=== PATIENT | male | born 1970 | race Caucasian/White ===

== ENCOUNTER 2016-10-03 21:03 | Emergency (ER) | payer OTHER ==
[~2016-10-03] VITALS: Ht 180.3 cm; Wt 67.2 kg
[~2016-10-03 21:03] MED LIST: LSN20 PO; NRV/5 PO; OMEP40CA PO
[2016-10-03 21:07] VITALS: TEMP 36.5; Ht 180.3 cm; Wt 67.2 kg
[2016-10-03] MEDS ORDERED: OMEP40CA41 PO (21:31)
--- NOTE | 2016-10-03 22:34 | DIAGNOSTIC IMAGING REPORT ---
RIGHT WRIST 5 VIEWS HISTORY: RIGHT WRIST/HAND PAIN Right COMPARISON: None. FINDINGS: No acute fracture or dislocation. Well-corticated ossific density dorsal to the carpal bones is consistent with an old triquetral bone fracture. Diffuse soft tissue swelling. No radiopaque foreign bodies. IMPRESSION: No acute fracture or dislocation. Diffuse soft tissue swelling. Electronically signed by: Smith Gloria M.D. 10/03/2016 10:32 PM Dictated Date/Time: 10/03/2016 10:30 PM
[2016-10-03] MEDS ORDERED: IBUPROFEN 800 MG TAB PO STA (22:40)
--- NOTE | 2016-10-03 22:48 | EMERGENCY ROOM VISIT NOTE ---
ED Visit Note First contact with patient: 21:17 Chief Complaint: Fell, Might Have Broke RIGHT Hand History of Present Illness: Patient is a 45-year-old male who presents to the emergency department today for evaluation of his RIGHT wrist pain/injury. The patient reports that he slipped on the ice while walking his dogs. He landed on his outstretched RIGHT hand. He denies striking his head or any loss of consciousness. He reports immediate pain and swelling to the affected area. He is tried nothing for his pain to this point. He rates his current discomfort as a 5/10. He denies any numbness or tingling into the distal extremity. He reports no previous history of fracture or injury to the affected area. Patient denies any associated neck pain, shoulder pain, elbow pain, or finger pain. Medications: Reviewed and discussed with the patient. Allergies: Phenergan PMH: No pertinent past medical history. SHx: Patient is a 45-year-old male who lives locally. ROS: All pertinent positive and negative review of systems are appropriately documented in the History of Present Illness. Physical Exam: VITAL SIGNS - Vital signs and nursing notes were reviewed. GENERAL - 45-year-old male appearing his stated age and in noticeable discomfort throughout the exam. MUSCULOSKELETAL - Active ROM of the RIGHT wrist was limited in all directions. Moderate edema noted to the Ulnar surface of the RIGHT wrist. No palpable deformities. Moderate tenderness over the Ulnar styloid process. No tenderness with squeezing the forearm. No tenderness extending into the carpals. No point- tenderness over the anatomic snuffbox. Moderate pain elicited with supination and pronation of the forearm. NEUROLOGIC - SENSORY: Spinothalamic tract was found to be intact with ability to discriminate sharp versus dull sensation at the level of the LEFT elbow down to the fingertips. No sensory deficits of the dorsal column were appreciated utilizing light touch for evaluation. VASCULAR - Capillary refill was brisk. +3/5 radial pulse palpated. LEFT: RIGHT WRIST 5 VIEWS HISTORY: RIGHT WRIST/HAND PAIN Right COMPARISON: None. FINDINGS: No acute fracture or dislocation. Well-corticated ossific density dorsal to the carpal bones is consistent with an old triquetral bone fracture. Diffuse soft tissue swelling. No radiopaque foreign bodies. IMPRESSION: No acute fracture or dislocation. Diffuse soft tissue swelling. ED Course: Patient was seen and evaluated by myself. X-ray was obtained of the affected wrist. Imaging results as above. Imaging results were reviewed with the patient who acknowledges understanding. The patient was provided an ice pack and Ultram while in the emergency department. He was provided a wrist splint for comfort. The patient remains neurovascularly intact pre-and post- splinting. The patient was educated on following up with orthopedic surgery from today's visit is symptoms are not improving over the next week. He was educated on worrisome symptoms for return visit to the emergency department. Patient discharged home in good condition. In the evaluation and treatment of this patient, the following differential diagnoses were considered: Wrist Sprain, Wrist Fracture, Wrist Dislocation, Scapholunate Dissociation, Carpal Fracture, Metacarpal Fracture, Radial Styloid Process Fracture, Ulnar Styloid Process Fracture, or Carpal Tunnel Syndrome. Impression: LEFT Wrist Sprain Discharge Instructions: You have been treated in the Emergency Department for a Wrist Sprain. For pain control, you can use the following pjyv-ucg-gqxxees medicines (if >12 yo): - Regular strength (325mg/tab) Tylenol (acetaminophen) 2 tabs every 4-6 hours as needed. Do not exceed 12 tablets in a 24 hour period. Avoid taking more than 4 grams (4000 mg) of Tylenol per day. This includes any other sources of acetaminophen you may take on a regular basis. - Regular strength (200 mg/tab) Advil (ibuprofen) 1-2 tabs every 4-6 hours as needed. Do not exceed a dose of 3200 mg per day. If this is a recent injury (<24 hrs), ice can be applied to the area of pain for the first 3 days to help decrease pain and inflammation. You have been provided the number for an Orthopaedic Surgeon. You should call this number as soon as possible to establish a follow-up visit from today's Emergency Department visit. Keep the brace/splint in place until evaluated by Orthopedics. Return to the Emergency Department if your current symptoms worsen despite treatment course outlined above, or if you develop any of the following symptoms : intractable pain despite aforementioned treatment course or new onset of numbness or tingling of the fingers. Problem List Medical Problems: (1) Abdominal cramps Status: Resolved (2) CALCULUS OF KIDNEY Status: Resolved (3) CALCULUS OF URETER Status: Resolved (4) Chest pain Status: Resolved (5) Chest pain Status: Resolved (6) Chest pain Status: Resolved (7) Costochondritis Status: Resolved (8) Costochondritis Status: Resolved (9) Dehydration Status: Resolved (10) Epigastric abdominal pain Status: Resolved (11) Esophageal Reflux Status: Chronic (12) GERD (gastroesophageal reflux disease) Status: Chronic (13) Hepatitis C Carrier Status: Chronic (14) Hypertension Status: Chronic (15) HYPERTENSION NOS Status: Chronic (16) Left shoulder pain Status: Resolved (17) Vomiting and diarrhea Status: Resolved Current/Historical Medications Scheduled Amlodipine Besylate (Amlodipine Besylate), 5 MG PO DAILY Lisinopril (Lisinopril), 20 MG PO DAILY Omeprazole (Prilosec), 40 MG PO DAILY Allergies Coded Allergies: Promethazine (Verified Allergy, Unknown, 10/03/16) Vital Signs Date Time Temp Pulse Resp B/P Pulse Ox O2 Delivery O2 Flow Rate FiO2 10/03/16 22:54 85 18 121/59 97 10/03/16 21:07 36.5 97 18 128/85 97 Room Air Medications Administered Medications (Trade) Dose Ordered Sig/Ludy Route Start Time Stop Time Status Last Admin Dose Admin Ibuprofen (Motrin Tab) 800 mg NOW STAT PO 10/03/16 22:40 10/03/16 22:42 DC 10/03/16 22:51 800 MG Departure Information Impression Primary Impression: Wrist sprain Dispostion Home / Self-Care Condition GOOD Referrals Jonathon Wong M.D. (PCP) Patient Instructions ED Sprain Wrist, My [facility] Additional Instructions You have been treated in the Emergency Department for a Wrist Sprain. For pain control, you can use the following [id number]-[id number] medicines (if >12 yo): - Regular strength (325mg/tab) Tylenol (acetaminophen) 2 tabs every 4-6 hours as needed. Do not exceed 12 tablets in a 24 hour period. Avoid taking more than 4 grams (4000 mg) of Tylenol per day. This includes any other sources of acetaminophen you may take on a regular basis. - Regular strength (200 mg/tab) Advil (ibuprofen) 1-2 tabs every 4-6 hours as needed. Do not exceed a dose of 3200 mg per day. If this is a recent injury (<24 hrs), ice can be applied to the area of pain for the first 3 days to help decrease pain and inflammation. You have been provided the number for an Orthopaedic Surgeon. You should call this number as soon as possible to establish a follow-up visit from today's Emergency Department visit. Keep the brace/splint in place until evaluated by Orthopedics. Return to the Emergency Department if your current symptoms worsen despite treatment course outlined above, or if you develop any of the following symptoms : intractable pain despite aforementioned treatment course or new onset of numbness or tingling of the fingers. Problem Qualifiers Primary Impression: Wrist sprain Encounter type: initial encounter Laterality: right Qualified Codes: S63.501A - Unspecified sprain of right wrist, initial encounter
[2016-10-03 22:54] VITALS: BP 121/59; PULSE 85; O2SAT 97
== END 2016-10-03 22:55 | disposition home or self-care (01) ==
LOC: C.EDB 21:05 → C.EDD 22:55
DX: S63.501A Unspecified sprain of right wrist, initial encounter (principal); W00.0XXA Fall on same level due to ice and snow, initial encounter; B18.2 Chronic viral hepatitis C; K21.9 Gastro-esophageal reflux disease without esophagitis; I10 Essential (primary) hypertension; Z87.442 Personal history of urinary calculi

== ENCOUNTER 2017-03-17 21:53 | Emergency (ER) | payer OTHER ==
[~2017-03-17] VITALS: Ht 180.3 cm; Wt 66.0 kg
[~2017-03-17 21:53] MED LIST changes: -OMEP40CA PO; +OMEP40CA41 PO
[2017-03-17 21:55] VITALS: BP 117/80; PULSE 97; TEMP 36.4; O2SAT 96; Ht 180.3 cm; Wt 66.0 kg
[2017-03-17] MEDS ORDERED: PENICILLIN HOME PACK 500MG (4 DOSES)BTL PO ONE (22:15)
[2017-03-17] MEDS ORDERED: PENI-82 PO (22:17)
--- NOTE | 2017-03-17 22:20 | EMERGENCY ROOM VISIT NOTE ---
History First contact with patient: 22:03 Chief Complaint: FACIAL PAIN/INJURY Stated Complaint: SWOLLEN FACE History of Present Illness The patient is a 46 year old male who presents to the Emergency Room with complaints of swelling in the right side of the face. The patient states that he felt okay when he woke up this morning, but later developed swelling in the right side of his face and his upper lip and called his . He has had issues with right-sided dental pain for several weeks. He contacted a dentist and made an appointment for next month. He rates his discomfort a 7/10. He denies difficulty swallowing, difficulty breathing, fevers/chills or neck pain. Review of Systems A complete 10 point review of systems was reviewed with the patient with pertinent positives and negatives as per history of present illness. All else were negative. Past Medical/Surgical History Medical Problems: (1) Abdominal cramps (2) CALCULUS OF KIDNEY (3) CALCULUS OF URETER (4) Chest pain (5) Chest pain (6) Chest pain (7) Costochondritis (8) Costochondritis (9) Dehydration (10) Epigastric abdominal pain (11) Esophageal Reflux (12) GERD (gastroesophageal reflux disease) (13) Hepatitis C Carrier (14) Hypertension (15) HYPERTENSION NOS (16) Left shoulder pain (17) Vomiting and diarrhea Family History FH: heart disease Kidney disease Social History Smoking Status: Current Every Day Smoker Alcohol Use: occasionally Drug Use: none Marital Status: in relationship Housing Status: lives with significant other Occupation Status: unemployed Current/Historical Medications Scheduled Amlodipine Besylate (Amlodipine Besylate), 5 MG PO DAILY Lisinopril (Lisinopril), 20 MG PO DAILY Omeprazole (Prilosec), 40 MG PO DAILY Penicillin V Potassium (Veetids), 500 MG PO QID Physical Exam Vital Signs Date Time Temp Pulse Resp B/P (MAP) Pulse Ox O2 Delivery O2 Flow Rate FiO2 03/17/17 21:55 36.4 97 18 117/80 96 Room Air Physical Exam VITALS: Vitals are noted on the nurse's note and reviewed by myself. Vital signs stable. GENERAL: This is a 46-year-old male, in no acute distress, nondiaphoretic, well- developed well-nourished. SKIN: The skin was without rashes. EARS: External auditory canals clear, tympanic membranes pearly johnson without erythema or effusion bilaterally. EYES: Pupils equal round and reactive to light and accommodation. MOUTH: Very poor dentition noted with several carious teeth. There is mild inflammation of the upper and lower right-sided gums. FACE: There is minimal swelling to the right upper jaw without erythema, warmth or induration. NECK: Supple without nuchal rigidity. No lymphadenopathy. No meningismus. HEART: Regular rate and rhythm without murmurs gallops or rubs. LUNGS: Clear to auscultation bilaterally without wheezes, rales or rhonchi. NEURO: Patient was alert and oriented to person place and time. Medical Decision & Procedures Medications Administered Medications (Trade) Dose Ordered Sig/Ludy Route Start Time Stop Time Status Last Admin Dose Admin Penicillin V Potassium (Pen-Vk 500MG Home Pack) 1 homepack UD ONCE PO 03/17/17 22:15 03/17/17 22:17 DC 03/17/17 22:43 1 HOMEPACK Medical Decision The patient was evaluated as above. He presents with dental pain and reported facial swelling. There is no obvious swelling on exam. There is no trismus or induration. He does have very poor dentition and carious teeth. He will be placed on antibiotics for a presumed dental infection. He has an appointment scheduled with a dentist. He was instructed to return here if he has worsening swelling, difficulty swallowing, difficulty breathing or pain/swelling in the neck. He verbalized understanding of my assessment and treatment plan and was discharged home in good condition. Medication Reconcilliation Current Medication List: was personally reviewed by me Blood Pressure Screening Patient's blood pressure: Normal blood pressure Impression Primary Impression: Pain due to dental caries Departure Information Dispostion Home / Self-Care Condition GOOD Prescriptions Penicillin V Potassium (Veetids) 500 Mg Tab 500 MG PO QID for 10 Days, #40 TAB Prov: Ute Dent ., MAYELIN 03/17/17 Referrals Jonathon Wong M.D. (PCP) Patient Instructions My [facility] Additional Instructions You have been treated in the Emergency Department for Dental Pain. You were prescribed penicillin to be taken 4 times daily for 10 days. This is an antibiotic. All antibiotics have the potential to cause diarrhea. Stop this medication and contact a medical provider if you were to develop any significant adverse side effects including: wheezing, shortness of breath, passing out, vomiting, or a diffuse rash. Always take antibiotics as directed and COMPLETE the ENTIRE course regardless of the improvement of your symptoms. For pain control, you can use the following hfji-blq-iqwzvny medicines (if >12 yo): - Regular strength (325mg/tab) Tylenol (acetaminophen) 2 tabs every 4-6 hours as needed. Do not exceed 12 tablets in a 24 hour period. Avoid taking more than 4 grams (4000 mg) of Tylenol per day. This includes any other sources of acetaminophen you may take on a regular basis. - Regular strength (200 mg/tab) Advil (ibuprofen) 1-2 tabs every 4-6 hours as needed. Do not exceed a dose of 3200 mg per day. Refrain from smoking cigarettes or using chewing tobacco until you have been evaluated by your dentist. Keeping beverages lukewarm and consuming soft foods can decrease your pain. Warm compresses over the affected area may offer some relief. You MUST seek evaluation of your dental pain by a dentist following your visit to the Emergency Department. The Emergency Department is not capable of treating dental issues long-term. You should call your dentist as soon as possible to make an appointment for evaluation of your dental pain. Return to the emergency department if you develop the following symptoms despite treatment course outlined above: fever, intractable pain, increased redness, swelling, or purulent discharge.
== END 2017-03-17 22:48 | disposition home or self-care (01) ==
LOC: C.EDB 21:53 → C.EDA 22:48
DX: K08.89 Other specified disorders of teeth and supporting structures (principal); K02.9 Dental caries, unspecified; R22.0 Localized swelling, mass and lump, head; I10 Essential (primary) hypertension; K21.9 Gastro-esophageal reflux disease without esophagitis; B18.2 Chronic viral hepatitis C; Z79.899 Other long term (current) drug therapy; Z87.442 Personal history of urinary calculi; Z82.49 Family history of ischemic heart disease and other diseases of the circulatory system; Z84.1 Family history of disorders of kidney and ureter; F17.200 Nicotine dependence, unspecified, uncomplicated

== ENCOUNTER → 2017-06-19 | Outpatient (CLI) | payer OTHER ==
--- NOTE | 2017-06-19 08:54 | DIAGNOSTIC IMAGING REPORT ---
TWO VIEW CHEST CLINICAL HISTORY: Atypical chest pain. Right upper quadrant abdominal pain. FINDINGS: PA and lateral chest radiographs are compared to study dated 06/24/2016 and correlated with chest CT dated 09/22/2015. The cardiomediastinal silhouette is unremarkable. The lungs and pleural spaces are clear. There is no pneumothorax. The bony thorax appears intact. IMPRESSION: No active disease in the chest. Electronically signed by: Haroldo Carrasquillo M.D. 06/19/2017 8:53 AM Dictated Date/Time: 06/19/2017 8:52 AM
--- NOTE | 2017-06-19 09:44 | DIAGNOSTIC IMAGING REPORT ---
(LIVER) ABDOMEN LIMITED CLINICAL HISTORY: R79.89 nausea. Vomiting. TECHNIQUE: Ultrasound COMPARISON STUDY: 11/03/2014 FINDINGS: Normal gallbladder. Common bile duct 3 mm. Fatty infiltration of liver. Pancreas and right kidney are unremarkable. IMPRESSION: Fatty infiltration of the liver. Otherwise negative study. The above report was generated using voice recognition software. It may contain grammatical, syntax or spelling errors. Electronically signed by: Charlie Magana M.D. 06/19/2017 9:42 AM Dictated Date/Time: 06/19/2017 9:41 AM
== END | disposition home or self-care (01) ==
LOC: C.ULTR 08:33
PROVIDERS: ATTEND Physician Assistant Medical
DX: R79.89 Other specified abnormal findings of blood chemistry (principal)

== ENCOUNTER → 2017-06-19 | Outpatient (CLI) | payer OTHER ==
--- NOTE | 2017-06-19 12:11 | EXERCISE STRESS ECHO ---
*NOTICE TO RECEIVING LIBERTARIAN AGENCY This information is strictly Confidential and protected under [place] law. [place] law prohibits you from making any further disclosure of this information unless further disclosure is expressly permitted by the written consent of the person to whom it pertains or is authorized by law. A general authorization for the release of medical or other information is not sufficient for this purpose. Hospital accepts no responsibility if the information is made available to any other person, INCLUDING THE PATIENT. Interpretation Summary * Name: SHIRA CHRISTIANSEN JR Study Date: 06/19/2017 09:08 AM BP: 128/91 mmHg * Patient Location: [facility] HR: 93 * : 1970 (M/d/yyyy) Gender: Male Height: 71 in * Age: 46 yrs Ethnicity: CA Weight: 145 lb * Ordering Physician: Gianna Lucas * Referring Physician: Jonathon Wong * Performed By: Rohini Bejarano RDCS * * Reason For Study: CHEST PAIN, PRE OP TOOTH EXTRACTION * BSA: 1.8 m2 * -- Conclusions -- * Left ventricular systolic function is normal. * Grade I diastolic dysfunction, (abnormal relaxation pattern). * Diagnostic exercise echocardiogram without evidence of inducible ischemia * Development of ectopic atrial rhythm in recovery Procedure Details * ECHOEX, CPT #64891 Left Ventricular Findings with Stress * Diagnostic exercise echocardiogram without evidence of inducible ischemia Development of ectopic atrial rhythm in recovery Left Ventricle * The left ventricle is normal in size. * There is normal left ventricular wall thickness. * Ejection Fraction = 60-65%. * Left ventricular systolic function is normal. * Grade I diastolic dysfunction, (abnormal relaxation pattern). * The left ventricular wall motion is normal at rest. Right Ventricle * The right ventricle is normal in size and function. * The right ventricular systolic function is normal as assessed by tricuspid annular plane systolic excursion (TAPSE) (normal >1.5 cm). Atria * The left atrial size is normal. * Right atrial size is normal. Mitral Valve * The mitral valve is grossly normal. * Significant mitral regurgitation is absent. Tricuspid Valve * The tricuspid valve is not well visualized, but is grossly normal. * There is mild tricuspid regurgitation. * Right ventricular systolic pressure is normal. Aortic Valve * The aortic valve is normal in structure and function. * The aortic valve is trileaflet. * No hemodynamically significant valvular aortic stenosis. * There is no significant aortic regurgitation. Great Vessels * The aortic root is normal size. Pericardium * There is no pericardial effusion. Stress Parameters * Normal baseline electrocardiogram. * Possible right atrial enlargement. * There are no significant ST segment changes during exercise or recovery. There did appear to be development of an ectopic atrial rhythm in recovery * Rest heart rate was '93' BPM. * Rest blood pressure was '129/91' * Maximum heart rate achieved was 176 bpm. * Maximum heart rate was 102 % of maximum age-predicted heart rate. * Maximum blood pressure was '160/80' * Total exercise time was '8:16' * Maximum exercise MET level achieved was '10.10' METS * Maximum treadmill speed was '3.40' miles per hour. * Maximum treadmill elevation was '14.00'% grade. * Exercise was terminated due to 'ACHIEVING TARGET HR' Left Ventricular Findings with Stress * The baseline EKG was normal There were no significant ST or T-wave changes noted during exercise or recovery There was development of an ectopic atrial rhythm in recovery Baseline echocardiographic images were normal There was normal augmentation of all hinson without development of wall motion abnormalities during stress Billings treadmill score: 10 (low risk) Normal heart rate and blood pressure response to exercise MMode 2D Measurements and Calculations IVSd 1.3 cm IVSs 1.8 cm LVIDd 3.5 cm LVIDs 2.3 cm LVPWd 1.1 cm LVPWs 1.4 cm IVS/LVPW 1.2 FS 32.9 % EDV(Teich) 49.6 ml ESV(Teich) 18.6 ml EF(Teich) 62.5 % EDV(cubed) 41.6 ml ESV(cubed) 12.6 ml EF(cubed) 69.7 % % IVS thick 35.2 % % LVPW thick 25.1 % LV mass(C)d 135.2 grams LV mass(C)dI 73.5 grams/m\S\2 LV mass(C)s 127.3 grams LV mass(C)sI 69.2 grams/m\S\2 SV(Teich) 31.0 ml SI(Teich) 16.9 ml/m\S\2 SV(cubed) 29.0 ml SI(cubed) 15.8 ml/m\S\2 Ao root diam 3.7 cm Ao root area 10.7 cm\S\2 LA dimension 1.9 cm LA/Ao 0.51 LVAd ap4 23.7 cm\S\2 LVLd ap4 8.0 cm EDV(MOD-sp4) 59.8 ml EDV(sp4-el) 59.7 ml LVAs ap4 13.2 cm\S\2 LVLs ap4 7.0 cm ESV(MOD-sp4) 23.7 ml ESV(sp4-el) 21.2 ml EF(MOD-sp4) 60.3 % EF(sp4-el) 64.6 % LVAd ap2 25.2 cm\S\2 LVLd ap2 8.3 cm EDV(MOD-sp2) 65.3 ml EDV(sp2-el) 64.5 ml LVAs ap2 13.9 cm\S\2 LVLs ap2 6.6 cm ESV(MOD-sp2) 29.2 ml ESV(sp2-el) 25.1 ml EF(MOD-sp2) 55.3 % EF(sp2-el) 61.0 % LVLd %diff 4.2 % EDV(MOD-bp) 64.1 ml LVLs %diff -6.24 % ESV(MOD-bp) 26.3 ml EF(MOD-bp) 59.0 % SV(MOD-sp4) 36.0 ml SI(MOD-sp4) 19.6 ml/m\S\2 SV(MOD-sp2) 36.1 ml SI(MOD-sp2) 19.6 ml/m\S\2 SV(MOD-bp) 37.8 ml SI(MOD-bp) 20.5 ml/m\S\2 SV(sp4-el) 38.6 ml SI(sp4-el) 21.0 ml/m\S\2 SV(sp2-el) 39.4 ml SI(sp2-el) 21.4 ml/m\S\2 Doppler Measurements and Calculations MV E max patricia 59.7 cm/sec MV A max patricia 59.2 cm/sec MV E/A 1.0 MV dec time 0.20 sec Ao V2 max 110.8 cm/sec Ao max PG 4.9 mmHg Ao max PG (full) 0.12 mmHg LV V1 max PG 4.8 mmHg LV V1 max 109.4 cm/sec TR max patricia 225.7 cm/sec
== END | disposition home or self-care (01) ==
LOC: C.CPL 08:35
PROVIDERS: ATTEND Physician Assistant Medical
DX: R07.9 Chest pain, unspecified (principal)

== ENCOUNTER 2023-10-10 18:59 | Inpatient (IN) ==
[2023-10-10 19:41] LABS: Basophils # (auto) 0.05 K/uL (0.00-0.20); Basophils % (auto) 0.9 %; Eosinophils # (auto) 0.09 K/uL (0.00-0.50); Eosinophils % (auto) 1.6 %; Hematocrit (blood only) 44.9 % (42.0-52.0); Immature Granulocytes # (auto) 0.03 K/uL (0.01-0.20); Immature Granulocytes % (auto) 0.5 %; Lymphocytes # (auto) 2.38 K/uL (1.20-3.40); Lymphocytes % (auto) 41.3 %; Mean Corpuscular Hemoglobin 30.9 pg (25.0-34.0); Mean Corpuscular Hgb Conc 35.6 g/dL (32.0-36.0); Mean Corpuscular Volume 86.7 fL (80.0-100.0); Mean Platelet Volume 9.3 fL (9.4-12.4); Monocytes # (auto) 0.76 K/uL (0.11-0.59); Monocytes % (auto) 13.2 %; Neutrophils # (auto) 2.45 K/uL (1.40-6.50); Neutrophils % (auto) 42.5 %; Platelet Count 234 K/uL (130-400); RDW Coefficient of Variation 16.2 % (11.5-14.5); RDW Standard Deviation 51.1 fL (36.4-46.3); Red Blood Count 5.18 M/uL (4.70-6.10); White Blood Count 5.76 K/ul (4.8-10.8)
[2023-10-10 20:03] LABS: INR 0.9 (0.9-1.1); Prothrombin Time 10.2 Seconds (9.0-12.0)
[2023-10-10] MEDS: KETOROLAC TROMETHAMINE 15 MG/ML VIAL IV STA (20:13)
[2023-10-10] MEDS: SODIUM CHLORIDE 0.9% 500 ML IV ONE (20:14)
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
[2023-10-10 20:29] LABS: Appearance Urine Clear (Clear); Bilirubin Urine Negative (Negative); Blood Urine Negative (Negative); Color Urine Yellow; Glucose Urine UA Negative (Negative); Ketones Urine Negative (Negative); Leukocyte Esterase Urine Negative (Negative); Nitrite Urine Negative (Negative); Protein Urine Negative (Negative); Specific Gravity Urine 1.004 (1.000-1.030); Urobilinogen Urine Negative (Negative)
[2023-10-10 21:03] LABS: Partial Thromboplastin Ratio 0.9; Partial Thromboplastin Time 25 Seconds (21-31)
--- NOTE | 2023-10-10 21:21 | Ultrasound Report ---
ULTRASOUND BILATERAL LOWER EXTREMITY VENOUS CLINICAL HISTORY: Lower extremity edema. COMPARISON STUDY: No priors. TECHNIQUE: Real-time, grayscale, and color Doppler sonography of the deep veins of the right and left lower extremity was performed from the inguinal crease to the calf. Compression and augmentation wer e utilized. FINDINGS: There is no sonographic evidence of deep venous thrombosis identified in the right or left lower extremity. The common femoral, superficial femoral, and popliteal veins are patent and normally compressible bilaterally. The greater saphenous vein and the profunda femoris vein at the junction w ith the common femoral vein are clear in both legs. The visualized calf veins are patent bilaterally. IMPRESSION: There is no sonographic evidence of deep venous thrombosis identified in the right or lef t lower extremity. ACT 112: Negative or not required by law. Electronically signed by: Haroldo Carrasquillo M.D. 10/10/2023 9:19 PM
[2023-10-10 21:50] LABS: Albumin Level 4.3 gm/dl (3.4-5.0); Anion Gap 16 (3-11); Calcium 9.3 mg/dl (8.6-10.3); Carbon Dioxide 21 mmol/L (21-32); Chloride 88 mmol/L (98-107); Potassium 2.9 mmol/L (3.5-5.1); Sodium 125 mmol/L (136-145)
[2023-10-10 21:56] LABS: Alanine Aminotransferase 81 U/L (7-52); Albumin Globulin Ratio 1.3 (0.9-2); Alkaline Phosphatase 227 U/L (34-104); Aspartate Aminotransferase 89 U/L (13-39); BUN Creatinine Ratio 8.3 (10-20); Blood Urea Nitrogen 7 mg/dl (6-23); Creatine Kinase 268 U/L (30-223); Est GFR (Non-African American) 99.3 ml/min; Globulin 3.4 gm/dl (2.5-4.0); Glucose 105 mg/dl (70-99(Fasting)); Total Protein 7.7 gm/dl (6.0-8.3)
[2023-10-10] MEDS: MULTI-VITAMIN INFUSION 10 ML, THIAMINE HCL 100 MG, FOLIC ACID 1 MG in SODIUM CHLORIDE 0... IV ONE (22:44)
[2023-10-10] MEDS: POTASSIUM CHLORIDE CRTAB 20 MEQ TABCR PO STA (22:44)
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
[2023-10-10] MEDS ORDERED: Ativan PO Alcohol Withdrawal--Active Protocol PO PRN (23:50)
[2023-10-10] MEDS ORDERED: GABAPENTIN 800MG ALCOHOL WITHDRAWAL LOAD PO STA (23:50)
[2023-10-10] MEDS ORDERED: LORazepam 1 MG TAB PO PRN ×2 (23:55)
[2023-10-11] MEDS ORDERED: MELATONIN 3 MG TAB PO PRN (00:25)
[2023-10-11] MEDS ORDERED: POLYETHYLENE (MIRALAX) 17 GM PACK PO PRN (00:25)
[2023-10-11] MEDS ORDERED: ONDANSETRON INJ 2 MG/ML 2 ML VIAL IV PRN (00:25)
[2023-10-11] MEDS: NSS IV SCH (00:54)
[2023-10-11] MEDS: KCL IV SCH (00:54)
[2023-10-11] MEDS: LORazepam 1 MG TAB PO PRN (00:55)
[2023-10-11] MEDS: GABAPENTIN 400 MG CAP PO ONE (01:50)
[2023-10-11] MEDS ORDERED: Nursing to Pharmacy Communication SCH (02:00)
[2023-10-11] MEDS: GABAPENTIN 400 MG CAP PO SCH (06:29)
[2023-10-11 07:54] LABS: Albumin Globulin Ratio 1.2 (0.9-2); Albumin Level 3.5 gm/dl (3.4-5.0); BUN Creatinine Ratio 6.7 (10-20); Bilirubin,Total 1.2 mg/dl (0.2-1.0); Calcium 7.8 mg/dl (8.6-10.3); Creatinine Clr Calc Pharmacy 144.5 ml/min; Est GFR (African American) 132.1 ml/min; Globulin 2.9 gm/dl (2.5-4.0); Magnesium 1.7 mg/dl (1.7-2.4); Potassium 3.3 mmol/L (3.5-5.1); Total Protein 6.4 gm/dl (6.0-8.3)
--- NOTE | 2023-10-11 08:53 | Electrocardiogram Report ---
Test Reason : Blood Pressure : / mmHG Vent. Rate : 069 BPM Atrial Rate : 069 BPM P-R Int : 164 ms QRS Dur : 080 ms QT Int : 424 ms P-R-T Axes : 039 -04 001 degrees QTc Int : 454 ms Normal sinus rhythm Left atrial enlargement Abnormal ECG When compared with ECG of 17-JUN-2018 15:06, No significant change Confirmed by Mike Perkins ([id number]) on 10/11/2023 8:53:08 AM Referred By: REFERRED SELF Confirmed By:Mike Perkins
[2023-10-11] MEDS: GABAPENTIN 100 MG CAP PO SCH (08:58)
[2023-10-11] MEDS: ENOXAPARIN INJ 40 MG/0.4 ML SYR SQ SCH (08:59)
[2023-10-11] MEDS: METOPROLOL SUCC 25MG EXT REL TAB PO SCH (09:00)
[2023-10-11] MEDS: amLODIPine BESYLATE 5 MG TAB PO SCH (09:00)
[2023-10-11] MEDS: levETIRAcetam 500 MG TAB PO SCH (09:00)
[2023-10-11] MEDS: PANTOprazole 40 MG TAB PO SCH (09:04)
--- NOTE | 2023-10-11 11:16 | Hospitalist Progress Note ---
Date of Service October 11, 2023 Assessment & Plan (1) Alcohol intoxication: Plan: Resolved. Librium tapering dose. (2) Bilateral leg pain: Plan: Improved. Continue gabapentin (3) Hypokalemia: Plan: Oral and parenteral replacement. Serial labs (4) Acute hyponatremia: Plan: Improved. Due to volume depletion. Serum osmolarity elevated at 323. Continue IV fluids. (5) Hypertension: Plan: Stable. Continue current medical manage Plan Hopeful discharge to home tomorrow, October 11 Admission and Anticipated Discharge Date Admission Date: October 10, 2023 Subjective Alert and oriented. He appears to have sobered up. He is now on Librium 10 mg 3 times a day which will gradually be tapered off. His bilateral thigh pain has improved. He remains on gabapentin 100 mg 3 times a day scheduled dosing. IV fluids taper down to 80 cc/h. Hydrochlorothiazide is on hold. Hopefully he can be discharged tomorrow, October 11 Review of Systems 2 Review of Systems: Constitutional-no fever or chills ENT-no blurred vision, no double vision, no epistaxis, no sore throat Respiratory-no cough, no wheezing, no shortness of breath Cardiac-no palpitations, no chest pain, no syncope GI-no nausea, vomiting, diarrhea, melena, hematochezia -no urinary retention, no urinary incontinence, no dysuria, no hematuria Musculoskeletal-bilateral thigh discomfort Skin-no bruising, no rashes, no pruritus Neuro-no isolated weakness, no paresthesia Psych-no depression, no anxiety Physical Exam 2 Physical Exam: General-alert and oriented x3, no fever, no chills HEENT-head atraumatic and normocephalic, pupils equal and reactive to light, extraocular muscles intact Neck-no lymphadenopathy or thyromegaly, trachea midline Chest-clear to auscultation. No rales, wheezing or rhonchi Cardiac-regular rate and rhythm, normal S1 and S2 Abdomen-normal bowel sounds, nontender, no hepatosplenomegaly Extremities-no cyanosis, clubbing, or edema Neuro-cranial nerves II through XII intact, motor and sensory function within normal limits, strength symmetrical, no focal deficits Psych-normal affect, normal mood Results & Data Results & Data Vital Signs (Past 12 Hours) Vital Signs Temp Pulse Pulse Resp BP Pulse Ox O2 Del Method 10/11/23 06:16 78 10/11/23 05:46 36.9 C 80 18 138/84 95 Room Air 10/11/23 00:45 36.7 C 73 18 118/67 97 Room Air 10/11/23 00:32 75 10/11/23 00:15 Room Air Laboratory Results 10/10/23 19:15 10/11/23 06:52 PG Care Time/CCT Total # of Minutes Spent Total Time Spent with Patient: Total time spent is greater than 50% in coordination of care (as documented) at patient's floor/unit and/or counseling patient: Coding Level of Care Code 07227 SUB INP/OBS CARE 3/50MIN Diagnoses Alcohol intoxication F10.929 Bilateral leg pain M79.604; M79.605 Hypokalemia E87.6 Acute hyponatremia E87.1 Hypertension I10
[2023-10-11] MEDS: POTASSIUM CHLORIDE CRTAB 20 MEQ TABCR PO SCH (12:02)
--- NOTE | 2023-10-11 19:46 | Billing Data ---
Date of Service October 11, 2023 Coding Level of Care Code 57611 INT INP/OBS CARE
[2023-10-11] MEDS ORDERED: GABAPENTIN 400 MG CAP PO SCH (22:00)
[2023-10-12 07:42] LABS: BUN Creatinine Ratio 7.7 (10-20); Calcium 9.1 mg/dl (8.6-10.3); Creatinine Clr Calc Pharmacy 133.4 ml/min; Est GFR (African American) 127.8 ml/min; Est GFR (Non-African American) 110.3 ml/min
--- NOTE | 2023-10-12 10:35 | Discharge Summary ---
Date of Service October 12, 2023 Admission HPI Per Admitting Provider 52 year old male with PMH of HTN, AUD, GERD, chronic hyponatremia, h/o seizures presents with bilateral medial thigh pain. Patient notes he developed sudden onset bilateral medial thigh aching/burning sensation that started yesterday morning and has been constant since. Symptoms symmetrical bilaterally. Denies associated trauma. Denies myalgias in any other muscle groups, denies weakness, numbness, or tingling. Patient with h/o AUD, notes that he typically drinks 6-12 beers per day. Denies recent illness, denies fevers/chills, N/V/D, chest pain, shortness of breath. Notes mild distal LE swelling but no pain or erythema. ED Course: Labs significant for Na 125 (baseline ~130), K 2.9, AST 89, ALT 81, alk phos 227, total CK 268, EtOH 258, UA negative Bilateral venous doppler negative S/p 40mEq KCl, banana bag, total 1.5L fluids Principal Diagnosis Alert and oriented. No overt alcohol withdrawal symptoms while on scheduled Librium dosing. He states the gabapentin has helped with his bilateral leg pain. He is medically stable for discharge home today and will continue with the Librium tapering dose and will continue with gabapentin going forward. Discharge Exam General-alert and oriented x3, no fever, no chills HEENT-head atraumatic and normocephalic, pupils equal and reactive to light, extraocular muscles intact Neck-no lymphadenopathy or thyromegaly, trachea midline Chest-clear to auscultation. No rales, wheezing or rhonchi Cardiac-regular rate and rhythm, normal S1 and S2 Abdomen-normal bowel sounds, nontender, no hepatosplenomegaly Extremities-no cyanosis, clubbing, or edema Neuro-cranial nerves II through XII intact, motor and sensory function within normal limits, strength symmetrical, no focal deficits Psych-normal affect, normal mood Discharge Data Allergies Allergy/AdvReac Type Severity Reaction Status Date / Time clams Allergy Severe Anaphylaxis Verified 10/10/23 22:46 lisinopril Allergy Severe angioedema Verified 10/10/23 22:46 oyster extract Allergy Severe Anaphylaxis Verified 10/10/23 22:46 promethazine Allergy Severe LIPS Verified 10/10/23 22:46 SWELLING Consultations 10/10/23 22:24 ED Decision to Admit Stat Ordered Studies 10/10/23 20:07 US venous doppler LE BI Stat Hospital Course (1) Alcohol intoxication: Resolved. Librium tapering dose. (2) Bilateral leg pain: Improved. Continue gabapentin at discharge (3) Hypokalemia: Corrected with oral and parenteral replacement. Serial labs (4) Acute hyponatremia: Improved. Due to volume depletion. Serum osmolarity elevated at 323. Treated while hospitalized with IV fluids. (5) Hypertension: Stable. Continue current medical manage Plan Home todayOctober 11 Total Time Total Time Spent Total Time Spent (In Minutes): 45-minute Discharge Plan Discharge Items Patient Disposition: Home - Self-Care Reason For Visit: LE PAIN Discharge Diagnosis: Alcohol intoxication, volume depletion, hyponatremia, hypokalemia, bilateral upper leg pain Condition on Discharge: Good Activity: Resume your previous activity Non-emergency contact: Primary Care Provider Call non-emergency contact if: you have any medication questions Follow-up/Referrals: Con Lemus, [Primary Care Provider] - Diet: Regular Addtl Attending Provider Instructions: Take chlordiazepoxide in a tapering dose fashion as directed. Take gabapentin twice daily for leg pain Pending Studies at Discharge: No Stand-Alone Forms: My DVDPlay, Smoking Cessation Medications and DC Order Prescriptions: New chlordiazepoxide HCl 10 mg Capsule See Rx Instructions .ROUTE .COMPLEX Qty: 12 0RF Rx Instructions: 10 mg orally 3 times a day for 2 days, then 10 mg twice a day for 2 days, then 10 mg once a day for 2 days, then stop gabapentin 100 mg Capsule 100 mg PO TID Qty: 90 0RF Continued diphenhydramine HCl [Benadryl] 25 mg capsule 25 mg PO QAM PRN (Reason: allergies) folic acid 1 mg tablet 1 mg PO QAM Rx Instructions: Once daily for 30 days levetiracetam [Keppra] 500 mg tablet 500 mg PO BID Rx Instructions: filled 04/20/23 for 90 days omeprazole 40 mg capsule,delayed release(DR/EC) 40 mg PO DAILY Qty: 90 3RF amlodipine 10 mg tablet 10 mg PO QAM Qty: 90 1RF Patient Comments: QAM Rx Instructions: filled 09/19/23 metoprolol succinate 25 mg tablet extended release 24 hr 25 mg PO DAILY Qty: 90 2RF Rx Instructions: filled 09/16/23 mecobalamin (vitamin B12) 1,000 mcg tablet,chewable 1,000 mcg PO QAM Discontinued hydrochlorothiazide 25 mg tablet 25 mg PO DAILY Rx Instructions: TAKE 1 TAB BY MOUTH DAILY, filled 07/25/23 Discharge Orders: Discharge Order (Routine); Ordered 10/12/23 Ordered By: Tray Haas Admission Data Admit Date/Time: 10/10/23 23:07 Attending Provider: Tray Haas Admit Provider: Jose Servin Primary Care Provider: Con Lemus Other Providers: Isael Mcadams Coding Level of Care Code 88685 INP/OBS DISCH >30 MIN Diagnoses Alcohol intoxication F10.929 Bilateral leg pain M79.604; M79.605 Hypokalemia E87.6 Acute hyponatremia E87.1 Hypertension I10
[2023-10-13] MEDS ORDERED: GABAPENTIN 400 MG CAP PO SCH
[2023-10-14] MEDS ORDERED: GABAPENTIN 400 MG CAP PO SCH (12:00)
== END 2023-10-12 14:22 | disposition home or self-care (01) | DRG 641 ==
LOC: ED 18:59 → 2E 23:07 → SUATTDRO 23:07 → 2E 10-11 00:02

== ENCOUNTER 2025-04-02 04:42 | Inpatient (IN) ==
--- NOTE | 2025-04-02 04:52 | Emergency Department Note ---
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 There is minimal left iliac fat stranding, and fluid density could be a small pelvic hematoma. Advise clinical correlation and follow-up. 2. A very thin lucent line noted in the medial aspect of the left iliac bone could be a small fissure fracture vs nutrient canal; clinical correlation and close follow-up are advised. 3. Interval increase in the number of a few small cortical renal cysts. 4. Interval progressive sigmoid diverticulosis, with mild sigmoid wall thickening. 5. Interval surgically removed the GB. Electronically signed by Yusuf Lemus 04-02-2025 07:[address] 04/02/25 05:37 EXAM: CT cervical spine wo con CLINICAL HISTORY: Trauma. TECHNIQUE: CT scan of the cervical spine was performed without the administration of intravenous contrast. Contiguous axial images were obtained from the skull base to the upper thoracic spine. Coronal and sagittal reformatted images were also reviewed. One of the following dose reduction techniques was utilized for this exam. Automated exposure control, adjustment of the mA and/or kV according to patient size, and use of iterative reconstruction. COMPARISON: Comparison is made with the prior imaging dated 03/12/2024 FINDINGS: Vertebrae: The vertebral bodies are normal in height and alignment. No evidence of acute fracture or dislocation. No signs of lytic or sclerotic lesions. Normal configuration of the posterior elements. Intervertebral Discs: The intervertebral disc spaces show multilevel disc degenerations, reduced disc height, end plate changes and irregularities. Facet Joints: The facet joints show arthritic changes, more severe at lower levels Neural Foramina: Bilateral neural foraminal stenosis due to osteophyte disc complexes at almost all levels, more severe at lower levels Prevertebral Soft Tissues: The prevertebral soft tissues are normal in thickness without evidence of mass or abnormal fluid collection. Additional Findings: No other significant findings are noted in the visualized soft tissue structures or bony elements. Left apical pleural thickening. IMPRESSION: 1. No evidence of acute fracture, dislocation 2. Cervical spondylosis 3. No interval changes Electronically signed by Yusuf Lemus 04-02-2025 06:[address] 04/02/25 05:37 EXAM: CT head/brain wo con CLINICAL HISTORY: Trauma. TECHNIQUE: Axial non-contrast CT scan of the brain was performed from the skull base to the high parietal region. One of the following dose reduction techniques were utilized for this exam: Automated exposure control, adjustment of the mA and/or kV according to patient size, use of iterative reconstruction. COMPARISON: 03/12/2024 CT. FINDINGS: Brain Parenchyma: No evidence of acute infarct, hemorrhage, or mass effect. No abnormal areas of hyperattenuation. Periventricular and deep white matter hypodensity suggest small vessel ischemic vasculopathy-related changes Ventricular System and Subarachnoid Spaces: Age-related involutional changes are seen as a dilated ventricular system and prominent CSF spaces No evidence of subarachnoid hemorrhage or extra-axial fluid collections. Cerebellum and Brainstem: No masses, lesions, or areas of abnormal density. Orbits: Normal appearance of the globes, optic nerves, and extraocular muscles. No evidence of orbital masses or abnormal density. Sinuses: No evidence of mucosal thickening Mastoid Air Cells: Clear mastoid air cells. No evidence of mastoiditis. Skull: Normal skull morphology. IMPRESSION: 1. No intra or extra-axial hematoma 2. No fracture line 3. Age-related involutional brain changes and small vessel ischemic vasculopathy-related changes 4. No interval changes Electronically signed by Yusuf Lemus 04-02-2025 06:[address] 04/02/25 05:38 EXAM: CT lumbar spine w con CLINICAL HISTORY: Trauma TECHNIQUE: CT scan of lumbar spine done with contrast 93 cc Opti 320. Axial images obtained with reformatted coronal and sagittal images and submitted for interpretation. One of the following dose reduction techniques was utilized for this exam: Automated exposure control, adjustment of the mA and/or kV according to patient size, and use of iterative reconstruction. COMPARISON: None. FINDINGS: Vertebrae: Suspected fissure fracture of the left iliac bone, medial aspect. Need a dedicated scan. Straightening of the lumbar spine due to muscle spasm. There is a mild grade I posterior retrolisthesis of L5 over S1. Degenerative changes as noted by multiple marginal osteophytes, subchondral sclerosis, and Schmorl's nodules. Reduced bone density is noted diffusely. No lytic or sclerotic lesions. Intervertebral Discs: Degenerative changes with a decrease in disc space at the L5-S1 level and a vacuum phenomenon. Spinal Canal and Neural Foramina: Variable degrees of neural foraminal narrowing caused by disc osteophyte complexes. Facet Joints: Facet joints arthropathy is noted. Soft Tissues: Left perivesical fat stranding could be trauma-related finding. A dedicated scan is needed. Normal appearance of the paraspinal soft tissues. No abnormal masses, fluid collections, or signs of inflammation. IMPRESSION: 1. Suspected fissure fracture of the left iliac bone, medial aspect. Need a dedicated scan. 2. Left perivesical fat stranding could be a trauma-related finding. A dedicated scan is needed. 3. There is a mild grade I posterior retrolisthesis of L5 over S1. 4. Marked degenerative changes of the lumbar spine, mostly noted at the L5-S1 level. 5. Reduced bone density is noted diffusely. Electronically signed by Yusuf Lemus 04-02-2025 07:00 AM Discharge Plan Visit Data Chief Complaint: Fall Stated Complaint: FALL, L HIP PAIN INTO KNEE ED Provider: Deborah Solis ED Midlevel Provider: Shruthi Almeida Discharge Problem: Fracture of iliac crest, Pelvic hematoma in male, Fall, Alcohol use disorder Patient Disposition: Admitted As Inpatient Condition: Fair Forms Stand Alone Forms: Get [facility] [employer] Prescriptions Prescriptions: No Action diphenhydramine HCl [Benadryl] 25 mg capsule 25 mg PO QAM PRN (Reason: allergies) Patient Comments: 04/02- otc unable to verify spironolactone [Aldactone] 25 mg tablet 25 mg PO QAM Qty: 90 3RF omeprazole 40 mg capsule,delayed release(DR/EC) 40 mg PO QAM gabapentin 100 mg capsule 0 mg PO QAM Patient Comments: 04/02- last filled 07/30 89 day supply #270 for 1 cap po tid. Original directions:100 mg po qam metoprolol succinate 25 mg tablet extended release 24 hr 25 mg PO QAM potassium chloride 20 mEq tablet extended release 20 meq PO BID ondansetron 4 mg tablet,disintegrating 4 mg PO Q8H PRN (Reason: nausea and vomiting) Qty: 30 0RF Patient Comments: 04/02- no fill history unable to verify thiamine HCl (vitamin B1) 100 mg tablet 0 mg PO DAILY Patient Comments: 04/02- OTC/ last filled 09/23 90 day supply #90 amlodipine 10 mg tablet 0 mg PO QAM Patient Comments: 04/02- last filled 07/30 90 day supply #90 Referrals Referrals: Con Lemus DO [Primary Care Provider] - Discharge Problem: Fracture of iliac crest Qualifiers: Encounter type: initial encounter Fracture type: closed Laterality: left Q ualified Code(s): S32.302A - Unspecified fracture of left ilium, initial encounter for closed fracture Fall Qualifiers: Encounter type: initial encounter Qualified Code(s): W19.XXXA - Unspecified fall, initial encounter
[2025-04-02 05:07] LABS: Hematocrit (blood only) 39.6 % (42.0-52.0); Hemoglobin 13.7 g/dl (14.0-18.0); Immature Granulocytes # (auto) 0.07 K/uL (0.01-0.20); Immature Granulocytes % (auto) 0.7 %; Mean Corpuscular Hemoglobin 32.4 pg (25.0-34.0); Mean Corpuscular Volume 93.6 fL (80.0-100.0); Platelet Count 232 K/uL (130-400); RDW Standard Deviation 51.4 fL (36.4-46.3); Red Blood Count 4.23 M/uL (4.70-6.10); White Blood Count 9.99 K/ul (4.8-10.8)
[2025-04-02] MEDS: ACETAMINOPHEN 1,000 MG/100 ML VIAL IV STA (05:10)
[2025-04-02 05:25] LABS: Alanine Aminotransferase 73 U/L (7-52); Albumin Globulin Ratio 1.4 (0.9-2); Alkaline Phosphatase 148 U/L (34-104); Anion Gap 15 (3-11); Bilirubin,Total 1.1 mg/dl (0.2-1.0); Blood Urea Nitrogen 7 mg/dl (6-23); Calcium 9.2 mg/dl (8.6-10.3); Carbon Dioxide 21 mmol/L (21-32); Chloride 97 mmol/L (98-107); Globulin 2.9 gm/dl (2.5-4.0); Glucose 99 mg/dl (70-99(Fasting)); Potassium 4.0 mmol/L (3.5-5.1); Sodium 133 mmol/L (136-145); Total Protein 7.1 gm/dl (6.0-8.3)
[2025-04-02] MEDS: ONDANSETRON INJ 2 MG/ML 2 ML VIAL IV STA (05:32)
[2025-04-02] MEDS: SODIUM CHLORIDE 0.9% 500 ML IV ONE (05:37)
[2025-04-02] MEDS: OPTIRAY 320 100ml IV ONE (06:14)
--- NOTE | 2025-04-02 06:16 | XRay Report ---
EXAM: XR hip LT 2V w pelvis CLINICAL HISTORY: Left hip injury from fall TECHNIQUE: X-ray images of the left hip joints in lateral and pelvis were obtained in anteroposterior (AP) projection. COMPARISON: No prior studies available for comparison. FINDINGS: In AP pelvis view, abnromal configuration/ angulation of femur neck and shaft, could be positional however a lucent line is seen in AP left hip projection is seen traversing the subcapital region of femur neck, raising concern for either a fracture line or projectionl lucency, clinical correlation needed and if suspected fracture, CT study of left hip joint is advised Pelvic Bones: No evidence of fractures, dislocations, or significant osseous lesions. Acetabular structures appear normal and intact. No signs of acetabular fracture or dysplasia. Femoral heads are normal and centered within the acetabulum. Hip Joints: Hip joints are normal with preserved joint spaces. No osteophytes, joint space narrowing, or sclerosis noted. Sacroiliac joints appear normal and unremarkable. No evidence of sacroiliitis or significant degenerative changes. Symphysis Pubis: Symphysis pubis is normal and intact. No evidence of separation or widening. Soft Tissues: Visualized soft tissues are normal and unremarkable. No soft tissue swelling, calcifications, or masses. Additional Findings: No other significant abnormalities noted. IMPRESSION: In AP pelvis view, abnormal configuration/ angulation of left femoral neck and shaft, could be positional, clinical correlation along with CT is needed. Disclaimer: A subtle bone abnormality or fracture may not be readily apparent on X-rays, thus clinical correlation and further imaging including follow-up CT, MRI, or follow-up X-rays are advised as needed. Electronically signed by Yusuf Lemus 04-02-2025 06:16 AM
[2025-04-02] MEDS: MoRPHine SULFATE 4 MG/ML 1 ML CARP\\VIAL IV STA ×2 (06:36→10:13)
--- NOTE | 2025-04-02 06:48 | CT Scan Report ---
EXAM: CT head/brain wo con CLINICAL HISTORY: Trauma. TECHNIQUE: Axial non-contrast CT scan of the brain was performed from the skull base to the high parietal region. One of the following dose reduction techniques were utilized for this exam: Automated exposure control, adjustment of the mA and/or kV according to patient size, use of iterative reconstruction. COMPARISON: 03/12/2024 CT. FINDINGS: Brain Parenchyma: No evidence of acute infarct, hemorrhage, or mass effect. No abnormal areas of hyperattenuation. Periventricular and deep white matter hypodensity suggest small vessel ischemic vasculopathy-related changes Ventricular System and Subarachnoid Spaces: Age-related involutional changes are seen as a dilated ventricular system and prominent CSF spaces No evidence of subarachnoid hemorrhage or extra-axial fluid collections. Cerebellum and Brainstem: No masses, lesions, or areas of abnormal density. Orbits: Normal appearance of the globes, optic nerves, and extraocular muscles. No evidence of orbital masses or abnormal density. Sinuses: No evidence of mucosal thickening Mastoid Air Cells: Clear mastoid air cells. No evidence of mastoiditis. Skull: Normal skull morphology. IMPRESSION: 1. No intra or extra-axial hematoma 2. No fracture line 3. Age-related involutional brain changes and small vessel ischemic vasculopathy-related changes 4. No interval changes Electronically signed by Yusuf Lemus 04-02-2025 06:48 AM
--- NOTE | 2025-04-02 06:59 | CT Scan Report ---
EXAM: CT cervical spine wo con CLINICAL HISTORY: Trauma. TECHNIQUE: CT scan of the cervical spine was performed without the administration of intravenous contrast. Contiguous axial images were obtained from the skull base to the upper thoracic spine. Coronal and sagittal reformatted images were also reviewed. One of the following dose reduction techniques was utilized for this exam. Automated exposure control, adjustment of the mA and/or kV according to patient size, and use of iterative reconstruction. COMPARISON: Comparison is made with the prior imaging dated 03/12/2024 FINDINGS: Vertebrae: The vertebral bodies are normal in height and alignment. No evidence of acute fracture or dislocation. No signs of lytic or sclerotic lesions. Normal configuration of the posterior elements. Intervertebral Discs: The intervertebral disc spaces show multilevel disc degenerations, reduced disc height, end plate changes and irregularities. Facet Joints: The facet joints show arthritic changes, more severe at lower levels Neural Foramina: Bilateral neural foraminal stenosis due to osteophyte disc complexes at almost all levels, more severe at lower levels Prevertebral Soft Tissues: The prevertebral soft tissues are normal in thickness without evidence of mass or abnormal fluid collection. Additional Findings: No other significant findings are noted in the visualized soft tissue structures or bony elements. Left apical pleural thickening. IMPRESSION: 1. No evidence of acute fracture, dislocation 2. Cervical spondylosis 3. No interval changes Electronically signed by Yusuf Lemus 04-02-2025 06:58 AM
--- NOTE | 2025-04-02 07:01 | CT Scan Report ---
EXAM: CT lumbar spine w con CLINICAL HISTORY: Trauma TECHNIQUE: CT scan of lumbar spine done with contrast 93 cc Opti 320. Axial images obtained with reformatted coronal and sagittal images and submitted for interpretation. One of the following dose reduction techniques was utilized for this exam: Automated exposure control, adjustment of the mA and/or kV according to patient size, and use of iterative reconstruction. COMPARISON: None. FINDINGS: Vertebrae: Suspected fissure fracture of the left iliac bone, medial aspect. Need a dedicated scan. Straightening of the lumbar spine due to muscle spasm. There is a mild grade I posterior retrolisthesis of L5 over S1. Degenerative changes as noted by multiple marginal osteophytes, subchondral sclerosis, and Schmorl's nodules. Reduced bone density is noted diffusely. No lytic or sclerotic lesions. Intervertebral Discs: Degenerative changes with a decrease in disc space at the L5-S1 level and a vacuum phenomenon. Spinal Canal and Neural Foramina: Variable degrees of neural foraminal narrowing caused by disc osteophyte complexes. Facet Joints: Facet joints arthropathy is noted. Soft Tissues: Left perivesical fat stranding could be trauma-related finding. A dedicated scan is needed. Normal appearance of the paraspinal soft tissues. No abnormal masses, fluid collections, or signs of inflammation. IMPRESSION: 1. Suspected fissure fracture of the left iliac bone, medial aspect. Need a dedicated scan. 2. Left perivesical fat stranding could be a trauma-related finding. A dedicated scan is needed. 3. There is a mild grade I posterior retrolisthesis of L5 over S1. 4. Marked degenerative changes of the lumbar spine, mostly noted at the L5-S1 level. 5. Reduced bone density is noted diffusely. Electronically signed by Yusuf Lemus 04-02-2025 07:00 AM
[2025-04-02 07:43] LABS: Appearance Urine Clear (Clear); Glucose Urine UA Negative (Negative)
--- NOTE | 2025-04-02 07:53 | CT Scan Report ---
EXAM: CT abd pelvis IV con only CLINICAL HISTORY: Trauma - left hip and LLQ pain. TECHNIQUE: Contrast-enhanced CT of the abdomen and pelvis was performed, with the following protocol: axial images with, and reconstructed coronal and sagittal images. Intravenous contrast was administered. One of the following dose reduction techniques was utilized for this exam: Automated exposure control, adjustment of the mA and/or kV according to patient size, and use of iterative reconstruction. COMPARISON: 06/17/2018 CT. FINDINGS: Abdomen: Liver: A densely calcific focus is measuring 1cm is located at segment VII, compatible with an old granuloma. Otherwise, Normal in size, shape, and density. No focal lesions, cysts, or masses were identified. Hepatic vasculature and biliary ducts are unremarkable. Gallbladder and Biliary System: The gallbladder is removed surgically. The common bile duct is normal in caliber without dilation. Pancreas: The pancreatic head, body, and tail are visualized and appear normal in size and density. No pancreatic masses or calcifications were noted. The pancreatic duct is not dilated. Spleen: Normal in size, shape, and density. No splenic lesions or masses were identified. Appendix: No gross pathology. No evidence of appendiceal abscess or perforation. Kidneys and Adrenal Glands: Both kidneys are normal in size, shape, and position. Bilateral few hypodense foci consistent with cortical cysts ranging between 5 to 7 mm. Cortical thickness is within normal limits. No renal calculi or hydronephrosis. Adrenal glands are unremarkable with no evidence of masses or hyperplasia. Pelvis: There is minimal left iliac fat stranding and fluid density could be a small pelvic hematoma. Advise clinical correlation and follow up. Urinary Bladder: Normal in contour and wall thickness. No intraluminal lesions identified. Prostate: Normal in size and contour. No focal lesions or masses identified. Seminal Vesicles: Normal in size and appearance. No abnormalities noted. Rectum and Sigmoid Colon: Multiple sigmoid diverticulosis, with mild sigmoid wall thickening. No evidence of mass. Peritoneal and Retroperitoneal Structures: No free fluid or abnormal fluid collections were identified within the abdomen or pelvis. No lymphadenopathy was noted. Bowel: The visualized bowel loops are normal in caliber and appearance. No evidence of bowel obstruction or wall thickening. Bones and Soft Tissues: A very thin lucent line noted in the medial aspect of the left iliac bone could be a small fissure fracture vs nutrient canal; clinical correlation and close follow-up are advised. IMPRESSION: 1. There is minimal left iliac fat stranding, and fluid density could be a small pelvic hematoma. Advise clinical correlation and follow-up. 2. A very thin lucent line noted in the medial aspect of the left iliac bone could be a small fissure fracture vs nutrient canal; clinical correlation and close follow-up are advised. 3. Interval increase in the number of a few small cortical renal cysts. 4. Interval progressive sigmoid diverticulosis, with mild sigmoid wall thickening. 5. Interval surgically removed the GB. Electronically signed by Yusuf Lemus 04-02-2025 07:52 AM
--- NOTE | 2025-04-02 08:14 | XRay Report ---
EXAM: XR chest 1V portable CLINICAL HISTORY: Fall TECHNIQUE: An X-ray image of the chest is obtained in AP portable projection. COMPARISON: 10/22/2024 CR. FINDINGS: Pulmonary Parenchyma: Lungs are clear bilaterally. No evidence of consolidation, collapse, or focal opacities. No pulmonary nodules are identified. No evidence of pleural effusion or pleural thickening. Heart and Mediastinum: Heart size and shape are normal. No mediastinal widening or masses. No hilar or mediastinal lymphadenopathy. Bony Thorax: Bony thorax appears intact without fractures or deformities. Left ribs multiple healed old fractures seen, unchanged Old left calvicular fracture. Soft Tissues: Soft tissues overlying the chest wall are unremarkable. IMPRESSION: 1. No acute cardiopulmonary abnormalities are identified. 2. Left ribs multiple healed old fractures are seen, unchanged. 3. Old left calvicular fracture. Electronically signed by Yusuf Lemus 04-02-2025 08:14 AM
[2025-04-02 08:21] LABS: INR 0.9 (0.9-1.1); Partial Thromboplastin Time 25 Seconds (21-31); Prothrombin Time 10.3 Seconds (9.0-12.0)
[2025-04-02] MEDS: LORazepam 1 MG/1 ML SYR ED Inj Use IV STA (08:35)
[2025-04-02] MEDS: THIAMINE HCL 100 MG/ML 2 ML VIAL IM ONE (08:36)
[2025-04-02] MEDS: MULTIVITAMIN TAB PO SCH (08:59)
[2025-04-02] MEDS: FOLIC ACID 1 MG TAB PO SCH (08:59)
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
[2025-04-02] MEDS: METOPROLOL SUCC 25MG EXT REL TAB PO STA (10:32)
[2025-04-02] MEDS: GABAPENTIN 250 MG/5 ML 470 ML BTL PO ONE (10:33)
[2025-04-02] MEDS: SPIRONOLACTONE 25 MG TAB PO ONE (10:33)
[2025-04-02] MEDS: THIAMINE HCL 100 MG in SYRINGE 9 ML IV STA (11:01)
[2025-04-02] MEDS: SODIUM CHLORIDE 0.9% 1,000 ML IV SCH (11:01)
[2025-04-02] MEDS ORDERED: ONDANSETRON INJ 2 MG/ML 2 ML VIAL IV PRN (12:14)
[2025-04-02] MEDS ORDERED: ALUMINUM/MAGNESIUM SUSP 30 ML UDC PO PRN (12:14)
[2025-04-02] MEDS ORDERED: POLYETHYLENE (MIRALAX) 17 GM PACK PO PRN (12:14)
[2025-04-02] MEDS ORDERED: MoRPHine SULFATE 4 MG/ML 1 ML CARP\\VIAL IV PRN (12:14)
[2025-04-02 12:23] LABS: Hematocrit (blood only) 39.8 % (42.0-52.0); Hemoglobin 14.2 g/dl (14.0-18.0); Mean Corpuscular Hemoglobin 33.3 pg (25.0-34.0); Mean Corpuscular Volume 93.2 fL (80.0-100.0); Platelet Count 212 K/uL (130-400); RDW Standard Deviation 50.4 fL (36.4-46.3); Red Blood Count 4.27 M/uL (4.70-6.10); White Blood Count 7.75 K/ul (4.8-10.8)
[2025-04-02] MEDS: ACETAMINOPHEN 500 MG TAB PO SCH (12:24)
[2025-04-02] MEDS: GABAPENTIN 100 MG CAP PO SCH (13:05)
[2025-04-02 14:52] LABS: Magnesium 1.5 mg/dl (1.7-2.4)
--- NOTE | 2025-04-02 15:34 | Communication Note ---
Date of Service: April 02, 2025 Discussed with on-call orthopedic surgeon, Dr. Shell - no surgical intervention planned for today. Can have regular diet. Additionally, lab work shows mild hypomagnesemia with mag 1.5. Will replete with 1 g mag IV x 2. Monitor mag with AM labs.
[2025-04-02] MEDS: MAGNESIUM SULFATE / D5W 1 GM/100 ML BAG IV SCH (15:54)
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
[2025-04-02] MEDS: POTASSIUM CHLORIDE CRTAB 20 MEQ TABCR PO SCH (20:32)
[2025-04-03 06:36] LABS: Hematocrit (blood only) 38.1 % (42.0-52.0); Hemoglobin 13.6 g/dl (14.0-18.0); Immature Granulocytes # (auto) 0.07 K/uL (0.01-0.20); Immature Granulocytes % (auto) 1.0 %; Mean Corpuscular Hemoglobin 33.6 pg (25.0-34.0); Mean Corpuscular Volume 94.1 fL (80.0-100.0); Platelet Count 193 K/uL (130-400); RDW Standard Deviation 49.9 fL (36.4-46.3); Red Blood Count 4.05 M/uL (4.70-6.10); White Blood Count 6.88 K/ul (4.8-10.8)
[2025-04-03 07:19] LABS: Alanine Aminotransferase 109.0 U/L (7-52); Albumin Globulin Ratio 1.4 (0.9-2); Alkaline Phosphatase 246.0 U/L (34-104); Anion Gap 8.0 (3-11); Bilirubin,Total 2.5 mg/dl (0.2-1.0); Blood Urea Nitrogen 7.0 mg/dl (6-23); Calcium 8.6 mg/dl (8.6-10.3); Carbon Dioxide 25.0 mmol/L (21-32); Chloride 99.0 mmol/L (98-107); Creatinine Clr Calc Pharmacy 135.1 ml/min; Globulin 2.5 gm/dl (2.5-4.0); Glucose 86.0 mg/dl (70-99(Fasting)); Magnesium 2.0 mg/dl (1.7-2.4); Potassium 3.9 mmol/L (3.5-5.1); Sodium 132.0 mmol/L (136-145); Total Protein 6.1 gm/dl (6.0-8.3)
[2025-04-03] MEDS: ENOXAPARIN INJ 40 MG/0.4 ML SYR SQ SCH (08:37)
[2025-04-03] MEDS: METOPROLOL SUCC 25MG EXT REL TAB PO SCH (08:38)
[2025-04-03] MEDS: THIAMINE HCL 100 MG TAB PO SCH (08:38)
[2025-04-03] MEDS: SPIRONOLACTONE 25 MG TAB PO SCH (08:38)
--- NOTE | 2025-04-03 11:47 | Hospitalist Progress Note ---
"Date of Service April 03, 2025 Assessment & Plan (1) Fall: (2) Fracture of iliac crest: (3) Pelvic hematoma in male: (4) Alcohol use disorder: (5) Elevated LFTs: (6) HTN (hypertension): Plan Ahmet is a 54-year-old man with past medical history of hypertension, alcohol use disorder, hypokalemia, bilateral leg pain, GERD, and remote history of seizures no longer on antiseizure medication. He presented after a fall at home when trying to get into bed overnight and landed on his left hip. Imaging on admission notes a very thin lucent line in the medial aspect of the left iliac bone which is likely a fracture based on his exam and fall, as well as minimal left iliac fat stranding and fluid density which could be a small pelvic hematoma. He was admitted for pain management and orthopedic evaluation, with close monitoring of alcohol withdrawal. #Fall | Suspected left iliac bone fracture | Small pelvic hematoma - Pain regimen: Scheduled Tylenol, oxy 5-10 mg Q4h PRN moderatesevere pain, morphine 4 mg IV Q4h PRN breakthrough pain - Valium 5 mg po Q6h PRN muscle spasms - Ortho consulted, appreciate input - Fall precautions - PT/OT consulted with protected weightbearing per Ortho and can increase his weightbearing as tolerated #Alcohol use disorder - ETOH 67.1 on admission. Drinks 1213 beers daily. No active withdrawal symptoms. Received 1 mg IV Ativan in ED and thiamine 100 mg IV on admission - AWSS at risk protocol in place - low threshold to add on Librium taper given history of seizures - Continue multivitamin, thiamine, folic acid - Close monitoring given history of seizures. Has not been on Keppra >2 years, last seizure ~3 years ago - no recent seizure activity #Elevated LFTs | Alcoholic hepatitis most likely due to alcohol use disorder. Intermittently elevated in the past. No abdominal pain on exam. CT A/P notes old liver granuloma but otherwise normal hepatic shape/size/density/vasculature. Continue to monitor - Encouraged alcohol cessation #Hypertension BP is controlled - Continue amlodipine 10 mg daily, spironolactone 25 mg daily, metoprolol 25 mg daily #Chronic hypokalemia likely secondary to HCTZ use. 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 Continue gabapentin 100 mg TID #GERD continue PPI Dispo: Continued inpatient stay for orthopedic surgeon evaluation, PT/OT evaluations, and pain control VTE PPx: Lovenox 40 mg daily. Closely monitor hgb with small pelvic hematoma. High risk for DVT with acute fracture and limited mobility. Admission and Anticipated Discharge Date Admission Date: April 02, 2025 Supervising Physician Co-Signing Physician Notes PA Supervision Note: I did not personally see or examine the patient today, but I verified all vasquez points of OUMAR Mar's assessment and plan with the following exceptions/additions: None Subjective Patient seen and evaluated at bedside. He reports his pain is controlled with he remains still, but has severe pain in his anterolateral left hip that radiates into his groin and down his left lower extremity to his knee with any movement. EDITH reports he tried to use the BSC earlier, but could not stand to pivot out of bed secondary to severe pain. Ahmet reports he was visited by the orthopedics PA but has not seen the orthopedic surgeon yet. We discussed that for now Ortho said he can weight-bear as tolerated with protected weightbearing and no surgical intervention is planned at this time. He reports sleeping well overnight. He is well tolerating his diet. He denies any symptoms of alcohol withdrawal. We discussed we will continue monitoring for signs of alcohol withdraw and continued pain control for his left hip pain. No additional complaints or concerns at this time. Telemetry reviewed: NSR 60s90s. Physical Exam Physical Exam: General: Moderate distress and mild diaphoresis secondary to pain. Well- developed. Somewhat disheveled appearing. Skin: Warm, dry. No rashes or peripheral edema noted. HEENT: PERRLA. Moist mucous membranes. Poor dentition. Full ROM of neck without tenderness. Cardiac: Regular rate and rhythm without murmurs gallops or rubs. Pulm: Clear to auscultation bilaterally without wheezes, rales or rhonchi. Normal respiratory effort. 95% on room air. Abdominal: Soft, nontender, nondistended. Bowel sounds present. Neuro: A&O x3. No focal neurological deficits. MSK: Severe tenderness to palpation of the lateral aspect of his left hip. Able to fully straighten left leg. No leg length discrepancy. ROM of LLE deferred per patient's request. Neurovascularly intact in lower extremities bilaterally. Results & Data Results & Data Vital Signs (Past 12 Hours) Vital Signs Temp Pulse Pulse Resp BP Pulse Ox O2 Del Method 04/03/25 11:22 98.1 F 64 16 123/83 96 Room Air 04/03/25 10:31 Room Air 04/03/25 07:53 97.5 F L 73 16 152/93 H 96 Room Air 04/03/25 07:05 70 04/03/25 03:48 98.2 F 80 20 146/83 H 96 Room Air 04/03/25 00:21 98.2 F 81 20 147/91 H 97 Room Air 04/03/25 00:11 Room Air 04/02/25 23:46 78 Laboratory Results Reviewed CBC with differential Reviewed CMP PG Care Time/CCT Total # of Minutes Spent Total Time Spent with Patient: Total time spent is greater than 50% in coordination of care (as documented) at patient's floor/unit and/or counseling patient: Coding Level of Care Code 72901 SUB INP/OBS CARE 2/35MIN Diagnoses Fall W19.XXXA Encounter type: initial encounter Fracture of iliac crest S32.302A Encounter type: initial encounter Fracture type: closed Laterality: left Pelvic hematoma in male N50.1 Alcohol use disorder F10.90 Elevated LFTs R79.89 HTN (hypertension) I10 (1) Fall Encounter type: initial encounter Qualified Code(s): W19.XXXA - Unspecified fall, initial encounter (2) Fracture of iliac crest Encounter type: initial encounter Fracture type: closed Laterality: left Qualified Code(s): S32.302A - Unspecified fracture of left ilium, initial encounter for closed fracture"
--- NOTE | 2025-04-03 13:50 | Orthopedic Progress Note ---
Date of Service April 03, 2025 Assessment & Plan (1) Left hip pain: I looked at the CT scan and the x-rays carefully. I did not see any fractures on the CT scan of his lumbar spine. We do not have a dedicated CT scan of his hip. 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 However, all of his pain is really coming from his hip joint. With any range of motion of his hip he has a lot of pain. He is unable to put any weight in it and he is not improving with conservative measures here at the hospital. I would like to get an MRI of his left hip. We will use the MRI to guide further treatment. Jimmy Leo was seen and examined at bedside this morning. Unfortunately still having a lot of pain in the left hip. He is unable to bear weight on it. He has pain with internal/external rotation. All of his pain is located in the groin. He has not been improving.. Review of Systems All systems reviewed & are unremarkable except as noted in HPI & below. Physical Exam On physical exam of the left hip, he has pain with internal/external rotation. I do not see any ecchymosis. I am able to lift his hip some but he has pain with flexion as well.. Results & Data Results & Data Laboratory Results . Diagnostic Findings . PG Care Time/CCT Total # of Minutes Spent Total Time Spent with Patient: Total time spent is greater than 50% in coordination of care (as documented) at patient's floor/unit and/or counseling patient: Coding Level of Care Code 25353 Post Operative Follow-Up Diagnoses Left hip pain M25.552
--- NOTE | 2025-04-03 15:26 | Magnetic Resonance Report ---
Exam: MRI of the left hip without contrast. Reason for exam: Patient fell. Unable to bear weight on left leg. Previous studies: X-ray left hip 04/02/2025 CT abdomen/pelvis 04/02/2025 FINDINGS: Multiple imaging sequences obtained through the pelvis and left hip. Nondisplaced complex branching fracture is seen in the left iliac bone involving the left acetabulum. This is nondisplaced at this time however there is soft tissue swelling on the adjacent soft tissues of the lateral pelvic contents as well as left hip joint effusion. No femoral fractures seen at the examined levels. There is also some edema in the plane the obturator muscles on the left consistent with partial muscle tear/strain. Right hip appears intact at this time. IMPRESSION: 1. Acute branching multiplanar fracture of the left iliac bone involving the left acetabulum. 2. Adjacent soft tissue swelling 3. deep intramuscular fascial swelling consistent with strain/partial tear of the left obturator muscles. 4. Orthopedic surgical referral recommended for this patient. Electronically signed by Greyson Alves 04-03-2025 3:26 PM
[2025-04-04 08:06] LABS: Hematocrit (blood only) 42.0 % (42.0-52.0); Hemoglobin 14.9 g/dl (14.0-18.0); Mean Corpuscular Hemoglobin 33.6 pg (25.0-34.0); Mean Corpuscular Volume 94.8 fL (80.0-100.0); Platelet Count 202 K/uL (130-400); RDW Standard Deviation 50.4 fL (36.4-46.3); Red Blood Count 4.43 M/uL (4.70-6.10); White Blood Count 8.25 K/ul (4.8-10.8)
[2025-04-04 08:20] LABS: Anion Gap 9.0 (3-11); Blood Urea Nitrogen 6.0 mg/dl (6-23); Calcium 9.4 mg/dl (8.6-10.3); Carbon Dioxide 28.0 mmol/L (21-32); Chloride 95.0 mmol/L (98-107); Creatinine Clr Calc Pharmacy 132.2 ml/min; Glucose 98.0 mg/dl (70-99(Fasting)); Potassium 4.1 mmol/L (3.5-5.1); Sodium 132.0 mmol/L (136-145)
--- NOTE | 2025-04-04 08:56 | Orthopedic Progress Note ---
Date of Service April 04, 2025 Assessment & Plan (1) Fracture of left acetabulum: MRI of the left hip reveals multi planar fracture of the left iliac bone involving the acetabulum. Will continue with nonoperative treatment. -50% weightbearing on the left lower extremity with the aid of crutches or walke r. -Continue pain control -Continue VTE prophylaxis -PT/OT per protocol -Disposition: Continue inpatient stay for PT/OT evaluation. Jimmy Mcclure was examined at bedside this morning. He is still having pain in the hip. He is not able to bear weight still. He does have pain with range of motion while in bed. Pain is in the groin. I discussed the results of the hip MRI with Ahmet. I informed him that he has a fracture in the acetabulum that is the source of his pain. I also discussed with him that this is a nonsurgical injury. Patient was relieved that he will not have to undergo surgery and that there is an explanation for why he is feeling the pain in his hip. Review of Systems All systems reviewed & are unremarkable except as noted in HPI & below. Physical Exam Physical exam shows a pleasant 54-year-old male sitting up in bed. Patient has pain with internal/external rotation as well as flexion.. There is no bruising or overlying skin changes. Results & Data Results & Data Laboratory Results 04/04/25 07:29 WBC 8.25 RBC 4.43 L Hgb 14.9 Hct 42.0 MCV 94.8 MCH 33.6 MCHC 35.5 RDW Std Deviation 50.4 H RDW Coeff of Sebastian 14.4 Plt Count 202 MPV 10.0 Sodium 132 L Potassium 4.1 Chloride 95 L Carbon Dioxide 28 Anion Gap 9 BUN 6 Creatinine 0.61 Est Cr Clr Drug Dosing 132.2 eGFR 112.73 BUN/Creatinine Ratio 9.8 L Glucose 98 Calcium 9.4 Diagnostic Findings Hip MRI 04/03/25 13:47 Exam: MRI of the left hip without contrast. Reason for exam: Patient fell. Unable to bear weight on left leg. Previous studies: X-ray left hip 04/02/2025 CT abdomen/pelvis 04/02/2025 FINDINGS: Multiple imaging sequences obtained through the pelvis and left hip. Nondisplaced complex branching fracture is seen in the left iliac bone involving the left acetabulum. This is nondisplaced at this time however there is soft tissue swelling on the adjacent soft tissues of the lateral pelvic contents as well as left hip joint effusion. No femoral fractures seen at the examined levels. There is also some edema in the plane the obturator muscles on the left consistent with partial muscle tear/strain. Right hip appears intact at this time. IMPRESSION: 1. Acute branching multiplanar fracture of the left iliac bone involving the left acetabulum. 2. Adjacent soft tissue swelling 3. deep intramuscular fascial swelling consistent with strain/partial tear of the left obturator muscles. 4. Orthopedic surgical referral recommended for this patient. Electronically signed by Greyson Alves 04-03-2025 3:26 PM PG Care Time/CCT Total # of Minutes Spent Total Time Spent with Patient: Total time spent is greater than 50% in coordination of care (as documented) at patient's floor/unit and/or counseling patient: Coding Level of Care Code 39454 SUB INP/OBS CARE 3/50MIN Diagnoses Closed nondisplaced fracture of left acetabulum, unspecified portion of acetabulum, initial encounter S32.402A Encounter type: initial encounter Fracture alignment: nondisplaced Fracture type: closed Sublocation of acetabulum: unspecified portion of acetabulum (1) Fracture of left acetabulum Encounter type: initial encounter Fracture alignment: nondisplaced Fracture type: closed Sublocation of acetabulum: unspecified portion of acetabulum Qualified Code(s): S32.402A - Unspecified fracture of left acetabulum, initial encounter for closed fracture
[2025-04-04 10:42] LABS: Alanine Aminotransferase 87.0 U/L (7-52); Alkaline Phosphatase 259.0 U/L (34-104); Bilirubin,Total 1.4 mg/dl (0.2-1.0); Total Protein 7.1 gm/dl (6.0-8.3)
--- NOTE | 2025-04-04 12:24 | Hospitalist Progress Note ---
Date of Service April 04, 2025 Assessment & Plan (1) Fall: (2) Fracture of left acetabulum: (3) Fracture of iliac crest: (4) Pelvic hematoma in male: (5) Alcohol use disorder: (6) Elevated LFTs: Plan Ahmet is a 54-year-old man with past medical history of hypertension, alcohol use disorder, hypokalemia, bilateral leg pain, GERD, and remote history of seizures no longer on antiseizure medication. He presented after a fall at home when trying to get into bed overnight and landed on his left hip. Imaging on admission notes a very thin lucent line in the medial aspect of the left iliac bone which is likely a fracture based on his exam and fall, as well as minimal left iliac fat stranding and fluid density which could be a small pelvic hematoma. He was admitted for pain management and orthopedic evaluation, with close monitoring of alcohol withdrawal. 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 Drinks 1213 beers daily. No active withdrawal symptoms. Received 1 mg IV Ativan in ED and thiamine 100 mg IV on admission - AWSS at risk protocol in place - low threshold to add on Librium taper given history of seizures - Continue multivitamin, thiamine, folic acid - Close monitoring given history of seizures. Has not been on Keppra >2 years, last seizure ~3 years ago - no recent seizure activity #Elevated LFTs | Alcoholic hepatitis most likely due to alcohol use disorder. Intermittently elevated in the past. No abdominal pain on exam. CT A/P notes old liver granuloma but otherwise normal hepatic shape/size/density/vasculature. Continue to monitor/trend - Encouraged alcohol cessation #Hypertension BP is controlled - Continue amlodipine 10 mg daily, spironolactone 25 mg daily, metoprolol 25 mg daily #Chronic hypokalemia likely secondary to HCTZ use. 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 Continue gabapentin 100 mg TID #GERD continue PPI Dispo: Continued inpatient stay for PT/OT evaluations and pain control VTE PPx: Lovenox 40 mg daily. Closely monitor hgb with small pelvic hematoma. High risk for DVT with acute fracture and limited mobility. Admission and Anticipated Discharge Date Admission Date: April 02, 2025 Supervising Physician Co-Signing Physician Notes PA Supervision Note: I did not personally see or examine the patient today, but I verified all vasquez points of OUMAR Mar's assessment and plan with the following exceptions/additions: None Subjective Patient seen and evaluated in the bedside chair. He reports feeling better now that he has a cause of his left hip pain identified. He also expresses gratitude that this does not require surgical intervention. He reports ongoing left hip pain but says that his pain is controlled with his current medications. He worked with therapy today and reports that it went "so-so." He denies any symptoms of alcohol withdrawal at this time. No additional complaints or concerns currently. Telemetry reviewed: NSR 60-80s. Physical Exam Physical Exam: General: Moderate distress and mild diaphoresis secondary to pain. Well- developed. Somewhat disheveled appearing. Skin: Warm, dry. No rashes or peripheral edema noted. Cardiac: Regular rate and rhythm without murmurs gallops or rubs. Pulm: Clear to auscultation bilaterally without wheezes, rales or rhonchi. Normal respiratory effort. 97% on room air. Abdominal: Soft, nontender, nondistended. Bowel sounds present. Neuro: A&O x3. No focal neurological deficits. MSK: Severe tenderness to palpation of the lateral aspect of his left hip. Able to fully straighten left leg. No leg length discrepancy. ROM of LLE deferred per patient's request. Neurovascularly intact in lower extremities bilaterally. Results & Data Results & Data Vital Signs (Past 12 Hours) Vital Signs Temp Pulse Pulse Resp BP Pulse Ox O2 Del Method 04/04/25 11:29 98.1 F 78 18 147/97 H 97 Room Air 04/04/25 10:42 Room Air 04/04/25 08:22 97.7 F 96 H 20 145/103 H 99 Room Air 04/04/25 07:19 84 04/04/25 03:18 98.1 F 72 16 153/89 H 96 Room Air Laboratory Results Reviewed CBC Reviewed BMP, LFTs PG Care Time/CCT Total # of Minutes Spent Total Time Spent with Patient: Total time spent is greater than 50% in coordination of care (as documented) at patient's floor/unit and/or counseling patient: Coding Level of Care Code 05063 SUB INP/OBS CARE 2/35MIN Diagnoses Fall W19.XXXA Encounter type: initial encounter Closed nondisplaced fracture of left acetabulum, unspecified portion of acetabulum, initial encounter S32.402A Encounter type: initial encounter Fracture alignment: nondisplaced Fracture type: closed Sublocation of acetabulum: unspecified portion of acetabulum Fracture of iliac crest S32.302A Encounter type: initial encounter Fracture type: closed Laterality: left Pelvic hematoma in male N50.1 Alcohol use disorder F10.90 Elevated LFTs R79.89 (1) Fall Encounter type: initial encounter Qualified Code(s): W19.XXXA - Unspecified fall, initial encounter (2) Fracture of left acetabulum Encounter type: initial encounter Fracture alignment: nondisplaced Fracture type: closed Sublocation of acetabulum: unspecified portion of acetabulum Qualified Code(s): S32.402A - Unspecified fracture of left acetabulum, initial encounter for closed fracture (3) Fracture of iliac crest Encounter type: initial encounter Fracture type: closed Laterality: left Qualified Code(s): S32.302A - Unspecified fracture of left ilium, initial encounter for closed fracture
[2025-04-04] MEDS: MELATONIN 3 MG TAB PO PRN (21:54)
[2025-04-05 06:53] LABS: Hematocrit (blood only) 40.1 % (42.0-52.0); Hemoglobin 13.4 g/dl (14.0-18.0); Mean Corpuscular Hemoglobin 32.1 pg (25.0-34.0); Mean Corpuscular Volume 95.9 fL (80.0-100.0); Platelet Count 208 K/uL (130-400); RDW Standard Deviation 51.4 fL (36.4-46.3); Red Blood Count 4.18 M/uL (4.70-6.10); White Blood Count 6.31 K/ul (4.8-10.8)
[2025-04-05 07:14] LABS: Alanine Aminotransferase 61.0 U/L (7-52); Albumin Globulin Ratio 1.4 (0.9-2); Alkaline Phosphatase 281.0 U/L (34-104); Anion Gap 7.0 (3-11); Bilirubin,Total 1.2 mg/dl (0.2-1.0); Blood Urea Nitrogen 8.0 mg/dl (6-23); Calcium 9.2 mg/dl (8.6-10.3); Carbon Dioxide 27.0 mmol/L (21-32); Chloride 99.0 mmol/L (98-107); Creatinine Clr Calc Pharmacy 132.2 ml/min; Globulin 2.7 gm/dl (2.5-4.0); Glucose 109.0 mg/dl (70-99(Fasting)); Potassium 4.7 mmol/L (3.5-5.1); Sodium 133.0 mmol/L (136-145); Total Protein 6.6 gm/dl (6.0-8.3)
[2025-04-05 07:26] VITALS: PULSE 89; RESP 18; TEMP 98.1; O2SAT 98
--- NOTE | 2025-04-05 10:15 | Discharge Summary ---
Discharge Summary Date of Service April 05, 2025 Principal Dx & Hospital Course #1 = Principal Diagnosis (1) Fall: (2) Fracture of left acetabulum: (3) Fracture of iliac crest: (4) Pelvic hematoma in male: (5) Alcohol use disorder: (6) Elevated LFTs: Sammy Leo is a 54-year-old man with past medical history of hypertension, alcohol use disorder, hypokalemia, bilateral leg pain, GERD, and remote history of seizures no longer on antiseizure medication. He presented after a fall at home when trying to get into bed overnight and landed on his left hip. Imaging on admission notes a very thin lucent line in the medial aspect of the left iliac bone which is likely a fracture based on his exam and fall, as well as minimal left iliac fat stranding and fluid density which could be a small pelvic hematoma. He was admitted for pain management and orthopedic evaluation, with close monitoring of alcohol withdrawal. 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 Follow up outpatient. Pain regimen: Scheduled Tylenol, Oxycodone 10mg as needed every 4 hours for breakthrough pain. Valium 5 mg po Q6h PRN muscle spasms PT/OT consulted - 50% weightbearing on the left lower extremity with the aid of crutches or walker per ortho Ahmet did refuse rehab but was agreeable to home health on dc - discussed w/ CM #Alcohol use disorder ETOH 67.1 on admission. Drinks 1213 beers daily. No active withdrawal symptoms. Received 1 mg IV Ativan in ED and thiamine 100 mg IV on admission Continue multivitamin, thiamine Recommended against alcohol use upon discharge while actively using opioids + benzos for symptom control. Patient verbalized understanding. 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 Intermittently elevated in the past. No abdominal pain on exam. CT A/P notes old liver granuloma but otherwise normal hepatic shape/size/density/vasculature. Encouraged alcohol cessation #Hypertension BP is controlled Continue amlodipine 10 mg daily, spironolactone 25 mg daily, metoprolol 25 mg daily #Chronic hypokalemia likely secondary to HCTZ use. 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 Continue gabapentin 100 mg TID #GERD continue PPI Discharged w/ home health services on 04/05. Admission HPI Per Admitting Provider Ahmet is a 54-year-old man with past medical history of hypertension, alcohol use disorder, hypokalemia, bilateral leg pain, GERD, and remote history of seizures no longer on antiseizure medication. He presented from home with left hip pain. At the time of my exam, the patient was lying in bed in moderate distress, intermittently writhing in pain. He states he was trying to get into bed overnight when he fell onto his left hip. He has anterolateral left hip pain, radiating down to his knee. Denied head strike or loss of consciousness. Denies blood thinner use. Denies neck or back pain. Denies any pain other than left hip pain. Denies chest pain, shortness of breath, headache, abdominal pain, nausea, vomiting, urinary symptoms. He initially was keeping his left hip flexed because of pain, then able to move it better after receiving pain medication. He reports some alcohol consumption with dinner but denies any further alcohol use later into the evening. He is due for his morning medications; no recent changes to his home medications. He no longer takes Keppra, stopped this approximately 2 years ago, last seizure about 3 years ago. He denies his seizures being from alcohol withdrawal, reports it was due to "a vitamin disturbance" but did not know further details. He does not use supplemental oxygen at baseline. No CPAP at night. Vitals on admission are stable. Labs on admission are significant for mild microcytic anemia, mild hyponatremia with sodium 133, elevated liver enzymes, EtOH 67. No leukocytosis. Renal function stable. UA negative. CT A/P on admission reveals thin lucent line in the medial aspect of the left iliac bone and minimal left iliac fat stranding and fluid density which could be a small pelvic hematoma. CXR notes old healed multiple left rib fractures and left clavicular fracture but no acute cardiopulmonary abnormalities. C-spine CT unremarkable. Head CT unremarkable. Lumbar spine CT notes diffusely reduced bone density and marked degenerative changes of the lumbar spine. We discussed code status, patient wishes to be a full code. Discharge Exam Constitutional WD/WN, vitals as above Eyes PERRL, conjunctivae normal, anicteric sclerae Respiratory normal respiratory effort Skin no rashes, warm and dry Neurologic PERRL, EOMI, accommodation nl, no face palsy, no dysarthria Psychiatric A+Ox3, euthymic affect Discharge Plan Discharge Items Patient Disposition: Home - Home Health Services Reason For Visit: LEFT HIP INJURY, ALCOHOL USE DISORDER Discharge Diagnosis: Hip fracture Condition on Discharge: Fair Activity: Resume your previous activity Non-emergency contact: Primary Care Provider and Surgeon Call non-emergency contact if: you have any medication questions and your symptoms worsen Follow-up/Referrals: Celso Shell DO [Physician] - Con Lemus DO [Primary Care Provider] - 04/12/25 2:00 pm Diet: Regular Addtl Attending Provider Instructions: Mr. Saleh, Can were recently hospitalized following a fall at home. You were found to have a nonoperative multiplanar pelvic fracture You are returning home with home health therapy to help you recover. Upon discharge: Please take 81mg Aspirin twice daily to prevent blood clots. Please also wear JOHN hose stockings during the day to also help prevent blood clots. This will be for 6 weeks. You are currently 50% weight bearing on your left leg. A walker will be given to you to help ambulate at home. Please continue on 1000mg Tylenol every 8 hours to help with pain control. For breakthrough pain - You may use Oxycodone 10mg every 4 hours as needed. You may also use Valium 5mg every 6 hours as needed for muscle spasms. While on narcotics and benzodiazepines please do not use alcohol. Follow up with your PCP within 1-2 weeks of discharge. Follow up with orthopedics on an outpatient basis for continued care. Best of luck! July Aldana PA-C Pending Studies at Discharge: No Stand-Alone Forms: My Hurray!, Smoking Cessation Medications and DC Order Prescriptions: New acetaminophen [Tylenol Extra Strength] 500 mg Tablet 1,000 mg PO Q8H Qty: 20 0RF diazepam 5 mg Tablet 5 mg PO Q6H PRN (Reason: muscle spasm) Qty: 5 0RF oxycodone 5 mg Tablet 10 mg PO Q4H PRN (Reason: pain) Qty: 14 0RF aspirin 81 mg capsule 81 mg PO BID Qty: 30 0RF Continued diphenhydramine HCl [Benadryl] 25 mg capsule 25 mg PO QAM PRN (Reason: allergies) Patient Comments: 04/02- otc unable to verify spironolactone [Aldactone] 25 mg tablet 25 mg PO QAM Qty: 90 3RF omeprazole 40 mg capsule,delayed release(DR/EC) 40 mg PO QAM gabapentin 100 mg capsule 0 mg PO QAM Patient Comments: 04/02- last filled 07/30 90 day supply #270 for 1 cap po tid. Original directions:100 mg po qam metoprolol succinate 25 mg tablet extended release 24 hr 25 mg PO QAM potassium chloride 20 mEq tablet extended release 20 meq PO BID ondansetron 4 mg tablet,disintegrating 4 mg PO Q8H PRN (Reason: nausea and vomiting) Qty: 30 0RF Patient Comments: 04/02- no fill history unable to verify thiamine HCl (vitamin B1) 100 mg tablet 0 mg PO DAILY Patient Comments: 04/02- OTC/ last filled 09/23 90 day supply #90 amlodipine 10 mg tablet 0 mg PO QAM Patient Comments: 04/02- last filled 07/30 90 day supply #90 Discharge Orders: Discharge Order (Routine); Ordered 04/05/25 Ordered By: July Ramirez/Other Patient Handouts: Hip Fx Common Questions, ED Pelvic Fracture, ED T.E.Bharath Stockings Admission Data Admit Date/Time: 04/02/25 09:15 Attending Provider: Tray Haas Admit Provider: Gifty Mcgregor Primary Care Provider: Con Lemus Other Providers: Celso Shell; Gifty Mcgregor; [facility] Other Interventions: Discharge Summary Assessment (RN) Last Done: 04/05/25 10:29 Hospital Stay Data Consultations 04/02/25 08:57 ED Decision to Admit Stat 04/02/25 12:14 Consult Orthopedic Surgery Routine Diagnostic Imagining Performed 04/02/25 05:37 CT abd pelvis IV con only Stat CT cervical spine wo con Stat CT head/brain wo con Stat 04/02/25 05:38 CT lumbar spine w con Stat 04/03/25 13:47 MR hip LT wo con Routine Pending Results Patient Have Any Pending Studies at Discharge: No Discharge Instructions Given to Patient (Per Discharging Provider) Mr. Saleh, aCn were recently hospitalized following a fall at home. You were found to have a nonoperative multiplanar pelvic fracture You are returning home with home health therapy to help you recover. Upon discharge: Please take 81mg Aspirin twice daily to prevent blood clots. Please also wear JOHN hose stockings during the day to also help prevent blood clots. This will be for 6 weeks. You are currently 50% weight bearing on your left leg. A walker will be given to you to help ambulate at home. Please continue on 1000mg Tylenol every 8 hours to help with pain control. For breakthrough pain - You may use Oxycodone 10mg every 4 hours as needed. You may also use Valium 5mg every 6 hours as needed for muscle spasms. While on narcotics and benzodiazepines please do not use alcohol. Follow up with your PCP within 1-2 weeks of discharge. Follow up with orthopedics on an outpatient basis for continued care. Best of luck! July Aldana PA-C Supervising Physician Co-Signing Physician Notes The patient was not seen by me. The chart was reviewed. Case discussed with OUMAR Glaser. Agree with assessment and plan Total Time Total Time Spent Total Time Spent (In Minutes): 50 Total Time Includes: Examination of the Patient, Discharge Planning, Medication Reconciliation, Communication With Other Providers and Other Coding Level of Care Code 03455 INP/OBS DISCH >30 MIN Diagnoses Fall W19.XXXA Encounter type: initial encounter Closed nondisplaced fracture of left acetabulum, unspecified portion of acetabulum, initial encounter S32.402A Encounter type: initial encounter Fracture alignment: nondisplaced Fracture type: closed Sublocation of acetabulum: unspecified portion of acetabulum Fracture of iliac crest S32.302A Encounter type: initial encounter Fracture type: closed Laterality: left Pelvic hematoma in male N50.1 Alcohol use disorder F10.90 Elevated LFTs R79.89
--- NOTE | 2025-04-05 10:23 | Orthopedic Progress Note ---
Date of Service April 05, 2025 Assessment & Plan (1) Fracture of left acetabulum: * Case/imaging reviewed and discussed with Dr Shell/Timoteo Mercer PA-C * Recommend 50 % partial weight bearing on LLE, thigh high broderick stockings and 81 mg ASA twice daily for DVT prophylaxis * Disposition: home with home PT * Daily treatment: Physical Therapy/ Occupational Therapy per protocol * Weight bearing status: 50% partial weight bearing left lower extremity * Pain control * Remainder care per primary team * Patient cleared from ortho for discharge. 6 week follow-up in office. Subjective Active Problems: Left acetabulum fracture 54 y/o male s/p left hip acetabular fracture he sustained after a fall at home. Doing well overall, pain managed and improved function. Denies fever/chills, chest pain/SOB, nausea/vomiting. Otherwise no complaints. Pt notes he really only had pain while weight bearing to get to the bathroom but is able to ambulate with partial weight bearing. Pt does not wish to go to rehab and would like to go home. Case management was setting up [facility] home health. . Review of Systems All systems reviewed & are unremarkable except as noted in HPI & below. Physical Exam . * General: Alert and oriented, no acute distress * Constitutional: well-developed, well-nourished. * Respiratory: Normal respiratory effort, no distress * Gastrointestinal: No tenderness to palpation, no rigidity or guarding. * Skin: No rash or lesion. * Neurologic: Grossly normal * Musculoskeletal: Left hip non, irritable with log rolling leg. Pt is able to flex hip and perform a straight leg raise. Pt is able to flex and extend knee without difficulty. Neurovascularly intact. Results & Data Results & Data Laboratory Results . Laboratory Results - last 24 hr 04/04/25 04/05/25 07:29 06:12 WBC 6.31 RBC 4.18 L Hgb 13.4 L Hct 40.1 L MCV 95.9 MCH 32.1 MCHC 33.4 RDW Std Deviation 51.4 H RDW Coeff of Sebastian 14.6 H Plt Count 208 MPV 9.9 Sodium 133 L Potassium 4.7 Chloride 99 Carbon Dioxide 27 Anion Gap 7 BUN 8 Creatinine 0.61 Est Cr Clr Drug Dosing 132.2 eGFR 112.73 BUN/Creatinine Ratio 13.1 Glucose 109 H Calcium 9.2 Total Bilirubin 1.4 H 1.2 H Direct Bilirubin 0.5 H AST 57 H 45 H ALT 87 H 61 H Alkaline Phosphatase 259 H 281 H Total Protein 7.1 6.6 Albumin 4.3 3.9 Globulin 2.7 Albumin/Globulin Ratio 1.4 Diagnostic Findings Chest X-Ray 04/02/25 04:53 EXAM: XR chest 1V portable CLINICAL HISTORY: Fall TECHNIQUE: An X-ray image of the chest is obtained in AP portable projection. COMPARISON: 10/22/2024 CR. FINDINGS: Pulmonary Parenchyma: Lungs are clear bilaterally. No evidence of consolidation, collapse, or focal opacities. No pulmonary nodules are identified. No evidence of pleural effusion or pleural thickening. Heart and Mediastinum: Heart size and shape are normal. No mediastinal widening or masses. No hilar or mediastinal lymphadenopathy. Bony Thorax: Bony thorax appears intact without fractures or deformities. Left ribs multiple healed old fractures seen, unchanged Old left calvicular fracture. Soft Tissues: Soft tissues overlying the chest wall are unremarkable. IMPRESSION: 1. No acute cardiopulmonary abnormalities are identified. 2. Left ribs multiple healed old fractures are seen, unchanged. 3. Old left calvicular fracture. Electronically signed by Yusuf Lemus 04-02-2025 08:14 AM Hip/Pelvis X-Ray 04/02/25 04:53 EXAM: XR hip LT 2V w pelvis CLINICAL HISTORY: Left hip injury from fall TECHNIQUE: X-ray images of the left hip joints in lateral and pelvis were obtained in anteroposterior (AP) projection. COMPARISON: No prior studies available for comparison. FINDINGS: In AP pelvis view, abnromal configuration/ angulation of femur neck and shaft, could be positional however a lucent line is seen in AP left hip projection is seen traversing the subcapital region of femur neck, raising concern for either a fracture line or projectionl lucency, clinical correlation needed and if suspected fracture, CT study of left hip joint is advised Pelvic Bones: No evidence of fractures, dislocations, or significant osseous lesions. Acetabular structures appear normal and intact. No signs of acetabular fracture or dysplasia. Femoral heads are normal and centered within the acetabulum. Hip Joints: Hip joints are normal with preserved joint spaces. No osteophytes, joint space narrowing, or sclerosis noted. Sacroiliac joints appear normal and unremarkable. No evidence of sacroiliitis or significant degenerative changes. Symphysis Pubis: Symphysis pubis is normal and intact. No evidence of separation or widening. Soft Tissues: Visualized soft tissues are normal and unremarkable. No soft tissue swelling, calcifications, or masses. Additional Findings: No other significant abnormalities noted. IMPRESSION: In AP pelvis view, abnormal configuration/ angulation of left femoral neck and shaft, could be positional, clinical correlation along with CT is needed. Disclaimer: A subtle bone abnormality or fracture may not be readily apparent on X-rays, thus clinical correlation and further imaging including follow-up CT, MRI, or follow-up X-rays are advised as needed. Electronically signed by Yusuf Lemus 04-02-2025 06:16 AM Abdomen/Pelvis CT 04/02/25 05:37 EXAM: CT abd pelvis IV con only CLINICAL HISTORY: Trauma - left hip and LLQ pain. TECHNIQUE: Contrast-enhanced CT of the abdomen and pelvis was performed, with the following protocol: axial images with, and reconstructed coronal and sagittal images. Intravenous contrast was administered. One of the following dose reduction techniques was utilized for this exam: Automated exposure control, adjustment of the mA and/or kV according to patient size, and use of iterative reconstruction. COMPARISON: 06/17/2018 CT. FINDINGS: Abdomen: Liver: A densely calcific focus is measuring 1cm is located at segment VII, compatible with an old granuloma. Otherwise, Normal in size, shape, and density. No focal lesions, cysts, or masses were identified. Hepatic vasculature and biliary ducts are unremarkable. Gallbladder and Biliary System: The gallbladder is removed surgically. The common bile duct is normal in caliber without dilation. Pancreas: The pancreatic head, body, and tail are visualized and appear normal in size and density. No pancreatic masses or calcifications were noted. The pancreatic duct is not dilated. Spleen: Normal in size, shape, and density. No splenic lesions or masses were identified. Appendix: No gross pathology. No evidence of appendiceal abscess or perforation. Kidneys and Adrenal Glands: Both kidneys are normal in size, shape, and position. Bilateral few hypodense foci consistent with cortical cysts ranging between 5 to 7 mm. Cortical thickness is within normal limits. No renal calculi or hydronephrosis. Adrenal glands are unremarkable with no evidence of masses or hyperplasia. Pelvis: There is minimal left iliac fat stranding and fluid density could be a small pelvic hematoma. Advise clinical correlation and follow up. Urinary Bladder: Normal in contour and wall thickness. No intraluminal lesions identified. Prostate: Normal in size and contour. No focal lesions or masses identified. Seminal Vesicles: Normal in size and appearance. No abnormalities noted. Rectum and Sigmoid Colon: Multiple sigmoid diverticulosis, with mild sigmoid wall thickening. No evidence of mass. Peritoneal and Retroperitoneal Structures: No free fluid or abnormal fluid collections were identified within the abdomen or pelvis. No lymphadenopathy was noted. Bowel: The visualized bowel loops are normal in caliber and appearance. No evidence of bowel obstruction or wall thickening. Bones and Soft Tissues: A very thin lucent line noted in the medial aspect of the left iliac bone could be a small fissure fracture vs nutrient canal; clinical correlation and close follow-up are advised. IMPRESSION: 1. There is minimal left iliac fat stranding, and fluid density could be a small pelvic hematoma. Advise clinical correlation and follow-up. 2. A very thin lucent line noted in the medial aspect of the left iliac bone could be a small fissure fracture vs nutrient canal; clinical correlation and close follow-up are advised. 3. Interval increase in the number of a few small cortical renal cysts. 4. Interval progressive sigmoid diverticulosis, with mild sigmoid wall thickening. 5. Interval surgically removed the GB. Electronically signed by Yusuf Lemus 04-02-2025 07:[address] 04/02/25 05:37 EXAM: CT cervical spine wo con CLINICAL HISTORY: Trauma. TECHNIQUE: CT scan of the cervical spine was performed without the administration of intravenous contrast. Contiguous axial images were obtained from the skull base to the upper thoracic spine. Coronal and sagittal reformatted images were also reviewed. One of the following dose reduction techniques was utilized for this exam. Automated exposure control, adjustment of the mA and/or kV according to patient size, and use of iterative reconstruction. COMPARISON: Comparison is made with the prior imaging dated 03/12/2024 FINDINGS: Vertebrae: The vertebral bodies are normal in height and alignment. No evidence of acute fracture or dislocation. No signs of lytic or sclerotic lesions. Normal configuration of the posterior elements. Intervertebral Discs: The intervertebral disc spaces show multilevel disc degenerations, reduced disc height, end plate changes and irregularities. Facet Joints: The facet joints show arthritic changes, more severe at lower levels Neural Foramina: Bilateral neural foraminal stenosis due to osteophyte disc complexes at almost all levels, more severe at lower levels Prevertebral Soft Tissues: The prevertebral soft tissues are normal in thickness without evidence of mass or abnormal fluid collection. Additional Findings: No other significant findings are noted in the visualized soft tissue structures or bony elements. Left apical pleural thickening. IMPRESSION: 1. No evidence of acute fracture, dislocation 2. Cervical spondylosis 3. No interval changes Electronically signed by Yusuf Lemus 04-02-2025 06:[address] 04/02/25 05:37 EXAM: CT head/brain wo con CLINICAL HISTORY: Trauma. TECHNIQUE: Axial non-contrast CT scan of the brain was performed from the skull base to the high parietal region. One of the following dose reduction techniques were utilized for this exam: Automated exposure control, adjustment of the mA and/or kV according to patient size, use of iterative reconstruction. COMPARISON: 03/12/2024 CT. FINDINGS: Brain Parenchyma: No evidence of acute infarct, hemorrhage, or mass effect. No abnormal areas of hyperattenuation. Periventricular and deep white matter hypodensity suggest small vessel ischemic vasculopathy-related changes Ventricular System and Subarachnoid Spaces: Age-related involutional changes are seen as a dilated ventricular system and prominent CSF spaces No evidence of subarachnoid hemorrhage or extra-axial fluid collections. Cerebellum and Brainstem: No masses, lesions, or areas of abnormal density. Orbits: Normal appearance of the globes, optic nerves, and extraocular muscles. No evidence of orbital masses or abnormal density. Sinuses: No evidence of mucosal thickening Mastoid Air Cells: Clear mastoid air cells. No evidence of mastoiditis. Skull: Normal skull morphology. IMPRESSION: 1. No intra or extra-axial hematoma 2. No fracture line 3. Age-related involutional brain changes and small vessel ischemic vasculopathy-related changes 4. No interval changes Electronically signed by Yusuf Lemus 04-02-2025 06:[address] 04/02/25 05:38 EXAM: CT lumbar spine w con CLINICAL HISTORY: Trauma TECHNIQUE: CT scan of lumbar spine done with contrast 93 cc Opti 320. Axial images obtained with reformatted coronal and sagittal images and submitted for interpretation. One of the following dose reduction techniques was utilized for this exam: Automated exposure control, adjustment of the mA and/or kV according to patient size, and use of iterative reconstruction. COMPARISON: None. FINDINGS: Vertebrae: Suspected fissure fracture of the left iliac bone, medial aspect. Need a dedicated scan. Straightening of the lumbar spine due to muscle spasm. There is a mild grade I posterior retrolisthesis of L5 over S1. Degenerative changes as noted by multiple marginal osteophytes, subchondral sclerosis, and Schmorl's nodules. Reduced bone density is noted diffusely. No lytic or sclerotic lesions. Intervertebral Discs: Degenerative changes with a decrease in disc space at the L5-S1 level and a vacuum phenomenon. Spinal Canal and Neural Foramina: Variable degrees of neural foraminal narrowing caused by disc osteophyte complexes. Facet Joints: Facet joints arthropathy is noted. Soft Tissues: Left perivesical fat stranding could be trauma-related finding. A dedicated scan is needed. Normal appearance of the paraspinal soft tissues. No abnormal masses, fluid collections, or signs of inflammation. IMPRESSION: 1. Suspected fissure fracture of the left iliac bone, medial aspect. Need a dedicated scan. 2. Left perivesical fat stranding could be a trauma-related finding. A dedicated scan is needed. 3. There is a mild grade I posterior retrolisthesis of L5 over S1. 4. Marked degenerative changes of the lumbar spine, mostly noted at the L5-S1 level. 5. Reduced bone density is noted diffusely. Electronically signed by Yusuf Lemus 04-02-2025 07:00 AM Hip MRI 04/03/25 13:47 Exam: MRI of the left hip without contrast. Reason for exam: Patient fell. Unable to bear weight on left leg. Previous studies: X-ray left hip 04/02/2025 CT abdomen/pelvis 04/02/2025 FINDINGS: Multiple imaging sequences obtained through the pelvis and left hip. Nondisplaced complex branching fracture is seen in the left iliac bone involving the left acetabulum. This is nondisplaced at this time however there is soft tissue swelling on the adjacent soft tissues of the lateral pelvic contents as well as left hip joint effusion. No femoral fractures seen at the examined levels. There is also some edema in the plane the obturator muscles on the left consistent with partial muscle tear/strain. Right hip appears intact at this time. IMPRESSION: 1. Acute branching multiplanar fracture of the left iliac bone involving the left acetabulum. 2. Adjacent soft tissue swelling 3. deep intramuscular fascial swelling consistent with strain/partial tear of the left obturator muscles. 4. Orthopedic surgical referral recommended for this patient. Electronically signed by Greyson Alves 04-03-2025 3:26 PM . PG Care Time/CCT Total # of Minutes Spent Total Time Spent with Patient: Total time spent is greater than 50% in coordination of care (as documented) at patient's floor/unit and/or counseling patient: Coding Diagnoses Closed nondisplaced fracture of left acetabulum, unspecified portion of acetabu lum, initial encounter S32.402A Encounter type: initial encounter Sublocation of acetabulum: unspecified portion of acetabulum Fracture type: closed Fracture alignment: nondisplaced (1) Fracture of left acetabulum Encounter type: initial encounter Sublocation of acetabulum: unspecified portion of acetabulum Fracture type: closed Fracture alignment: nondisplaced Qualified Code(s): S32.402A - Unspecified fracture of left acetabulum, initial encounter for closed fracture
[2025-04-05 10:31] VITALS: BP 138/82
== END 2025-04-05 11:03 | disposition home health service (06) | DRG 543 ==
LOC: SUATTDRO → ED 04:42 → SUATTDRO 09:15 → EDINP 09:15 → 2W 12:15